=== PATIENT | female | born 1995 | race Caucasian/White ===

== ENCOUNTER 2016-10-08 14:01 | Emergency (ER) | payer MEDICAID, OTHER ==
[~2016-10-08] VITALS: Ht 160 cm; Wt 63.0 kg
[2016-10-08 14:02] VITALS: BP 134/76; PULSE 90; RESP 15; TEMP 92.8; O2SAT 100
[2016-10-08] MEDS ORDERED: prenatal PO (14:23)
--- NOTE | 2016-10-08 14:27 | PD ---
HPI Chief Complaint: Related Problem Time Seen by Provider: 14:22 Travel History International Travel<30 days: No Contact w/Intl Traveler<30days: No Traveled to known affect area: No History of Present Illness HPI Patient's an extra female presenting to the emergency department for evaluation of vaginal bleeding. Patient states that she believes to be 9 weeks . Her last menstrual cycle was on August 06, 2016. Patient states last night she started mild bleeding. Patient has not had any abdominal pain, no cramping , she is not passing any clots. Patient is currently taking vitamins, she has not had any care to this point. Patient has had one live , no history of miscarriages. [facility] Past Medical History Medical History: Denies Significant Hx Diminished Hearing: No ?: LMP: July : 1 Para: 1 Miscarriage: 0 Past Surgical History Tonsillectomy: Yes Social History Alcohol Use: No Tobacco Use: No Substance Use: No Allergies-Medications (Allergen,Severity, Reaction): Coded Allergies: Aspirin (Verified Allergy, Severe, Anaphylaxis, 10/08/16) Benadryl (Verified Allergy, Severe, burning sensation throughout chest, ) Codeine (Verified Allergy, Severe, Anaphylaxis, 10/08/16) Reported Meds & Prescriptions Reported Meds & Active Scripts Active Reported [] 1 Tab PO DAILY Review of Systems Except as stated in HPI: all other systems reviewed are Neg Genitourinary: Positive: Vaginal Bleeding Physical Exam Narrative GENERAL: Well-nourished, well-developed patient. SKIN: Warm and dry. HEAD: Normocephalic. EYES: No scleral icterus. No injection or drainage. NECK: Supple, trachea midline. No JVD or lymphadenopathy. CARDIOVASCULAR: Regular rate and rhythm without murmurs, gallops, or rubs. RESPIRATORY: Breath sounds equal bilaterally. No accessory muscle use. GASTROINTESTINAL: Abdomen soft, non-tender, nondistended. MUSCULOSKELETAL: No cyanosis, or edema. BACK: Nontender without obvious deformity. No CVA tenderness. Data Data Last Documented VS Vital Signs Date Time Temp Pulse Resp B/P Pulse Ox O2 Delivery O2 Flow Rate FiO2 10/08/16 14:02 92.8 90 15 134/76 100 Orders Beta Hcg (Quant/Titer) (10/08/16 14:16) Urinalysis - C+S If Indicated (10/08/16 14:16) Ed Urine Pregnancytest Poc (10/08/16 14:16) Us Pelvis (Ques Pr/Ect)W Trans (10/08/16 ) Labs Laboratory Tests Test 10/08/16 14:25 Urine Color YELLOW Urine Turbidity CLEAR Urine pH 5.5 Urine Specific [place] 1.025 Urine Protein TRACE mg/dL Urine Glucose (UA) NEG mg/dL Urine Ketones NEG mg/dL Urine Occult Blood LARGE Urine Nitrite NEG Urine Bilirubin NEG Urine Urobilinogen LESS THAN 2.0 MG/DL Urine Leukocyte Esterase NEG Urine RBC 40 /hpf Urine WBC 1 /hpf Urine Squamous Epithelial 1 /hpf Cells Urine Mucus FEW /lpf Microscopic Urinalysis Comment CULT NOT INDICATED MDM Medical Decision Making Medical Screen Exam Complete: Yes Emergency Medical Condition: Yes Interpretation(s) Vital Signs Date Time Temp Pulse Resp B/P Pulse Ox O2 Delivery O2 Flow Rate FiO2 10/08/16 14:02 92.8 90 15 134/76 100 Differential Diagnosis Vaginal bleeding versus threatened versus spontaneous miscarriage versus hemorrhage versus anemia versus other Narrative Course Patient is an 19-year-old female presenting to emergency for evaluation of vaginal bleeding that started last night. Patient is approximately 9 weeks . Labs ordered and pending. Ultrasound ordered and pending. Patient resting comfortably, significant other at bedside. Patient's vital signs are stable. Care of patient transferred to Dr. Sun. Gosia Garcia Oct 08, 2016 14:27
[2016-10-08 15:04] LABS: BLOOD, URINE LARGE (NEG); COMMENT (UR) CULT NOT INDICATED; CULTURE IF INDICATED CULT NOT INDICATED; GLUCOSE,URINE NEG (NEG); KETONE, URINE NEG (NEG); MUCUS URINE FEW /lpf (OCC); NITRITE,URINE NEG (NEG); PH, URINE 5.5 (5.0-8.5); SQUAMOUS EPITHELIAL CELL URINE 1 /hpf (0-5); URINE COLOR YELLOW (YELLW/STRAW)
[2016-10-08 15:29] LABS: BETA HCG QUANT 1374 MIU/ML (0-5)
--- NOTE | 2016-10-08 17:20 | PD ---
Data Data Last Documented VS Vital Signs Date Time Temp Pulse Resp B/P Pulse Ox O2 Delivery O2 Flow Rate FiO2 10/08/16 14:02 92.8 90 15 134/76 100 Orders Beta Hcg (Quant/Titer) (10/08/16 14:16) Urinalysis - C+S If Indicated (10/08/16 14:16) Ed Urine Pregnancytest Poc (10/08/16 14:16) Us Pelvis (Ques Pr/Ect)W Trans (10/08/16 ) Labs Laboratory Tests Test 10/08/16 14:25 Urine Color YELLOW Urine Turbidity CLEAR Urine pH 5.5 Urine Specific [place] 1.025 Urine Protein TRACE mg/dL Urine Glucose (UA) NEG mg/dL Urine Ketones NEG mg/dL Urine Occult Blood LARGE Urine Nitrite NEG Urine Bilirubin NEG Urine Urobilinogen LESS THAN 2.0 MG/DL Urine Leukocyte Esterase NEG Urine RBC 40 /hpf Urine WBC 1 /hpf Urine Squamous Epithelial 1 /hpf Cells Urine Mucus FEW /lpf Microscopic Urinalysis Comment CULT NOT INDICATED Human Chorionic Gonadotropin, 1374 MIU/ML Quant MDM Supervised Visit with ROBERTH: Yes Narrative Course I, Dr. Otoole, have reviewed the advance practice practitioner's documentation and am in agreement, met with the patient face to face, made the diagnosis, and the medical decision making was done by me. See her note for further details. The patient was initially evaluated in triage and brought back to a medical bed when it became available. Briefly this is a 20-year-old female, , approximately 9 weeks , LMP August 06, 2016, for evaluation of vaginal bleeding. The patient started noticing some vaginal bleeding that started last night which consist of tiny blood clots. She denies abdominal pain. Beta hCG is 1374. UA is not suggestive of UTI. Chart review shows that the patient's blood type is A positive. Pelvic ultrasound pending. Pelvic ultrasound: CONCLUSION : Fluid-filled sac in the endometrium could be related to early versus blighted ovum. No pole or yolk sac. Ectopic cannot be excluded as this could represent a pseudo-gestational sac as well. Close interval followup and serial beta-hCG is recommended. Patient was made aware of all findings. She is resting comfortably. Her abdominal exam is benign. At this point the plan is to discharge her home and have her return in 48 hours for repeat beta hCG. The patient was informed on when to return to the emergency Department sooner. She verbalizes understanding and agreement with plan. Diagnosis Primary Impression: First trimester bleeding Referrals: [facility]bage Pick Up Man 2 days Additional Instruction: Return to the emergency department in 48 hours or follow up with an FRAME TABLE OPERATOR HELPER doctor in 48 hours for repeat beta hCG. Return to the emergency Department sooner for worsening symptoms or any other concerns as discussed. Disposition: 01 DISCHARGE HOME Condition: Stable Jt Otoole MD Oct 08, 2016 17:20
--- NOTE | 2016-10-08 17:30 | RADRPT ---
EXAM DATE/TIME: 10/08/2016 16:10 [place] COMPARISON: No previous studies available for comparison. INDICATIONS : Ectopic. LAB(S): Beta-hC MEDICAL HISTORY : Vaginal bleeding. SURGICAL HISTORY : Tonsillectomy. Adenoids removed. ENCOUNTER: Initial ACUITY: 1 day PAIN SCORE: 0/10 LOCATION: Bilateral pelvis MEASUREMENTS: UTERUS: 8.7 x 5.7 x 6.0 cm ENDOMETRIAL STRIPE: 18 mm RIGHT OVARY: 2.7 x 2.0 x 2.6 cm LEFT OVARY: 4.2 x 2.4 x 2.1 cm FINDINGS: UTERUS: fluid-filled sac in a thickened endometrium measures 11 x 8 x 12 mm. No pole or yo lk sac. RIGHT OVARY: Ovary contains no mass or significant cystic lesion. LEFT OVARY: Ovary contains no mass or significant cystic lesion. MISCELLANEOUS: No free fluid. CONCLUSION : Fluid-filled sac in the endometrium could be related to early versus blighted ovum. No feta l pole or yolk sac. Ectopic cannot be excluded as this could represent a pseudo-gestational sac as well. Close interval followup and serial beta-hCG is recommended. Carl Espinal MD on October 08, 2016 at 17:27 Board Certified Radiologist. This report was verified electronically.
== END 2016-10-08 18:20 | disposition home or self-care (01) ==
LOC: NEPA 14:01
DX: O20.9 Hemorrhage in early pregnancy, unspecified (principal); Z3A.09 9 weeks gestation of pregnancy
CPT/HCPCS: 76700; 76817; 81001; 84702; 84703

== ENCOUNTER 2016-10-09 11:15 | Emergency (ER) | payer MEDICAID, OTHER ==
[~2016-10-09] VITALS: Ht 160 cm; Wt 63.6 kg
[~2016-10-09 11:15] MED LIST: prenatal PO
[2016-10-09 11:19] VITALS: BP 125/64; PULSE 100; RESP 20; TEMP 97.7; O2SAT 97
[2016-10-09 12:05] LABS: HEMATOCRIT 36.5 % (35.0-46.0); MEAN CELL VOLUME 83.5 FL (80.0-100.0); MEAN CORPUSCULAR HEMOGLOBIN 28.4 PG (27.0-34.0); PLATELET COUNT 223 TH/MM3 (150-450); RED BLOOD COUNT 4.37 MIL/MM3 (4.00-5.30); RED CELL DISTRIBUTION WIDTH 13.8 % (11.6-17.2); REVIEW FLAG FINAL; WHITE BLOOD COUNT 7.9 TH/MM3 (4.0-11.0)
[2016-10-09 12:34] LABS: BETA HCG QUANT 932 MIU/ML (0-5)
--- NOTE | 2016-10-09 12:49 | PD ---
HPI Chief Complaint: Related Problem Time Seen by Provider: 11:38 Travel History International Travel<30 days: No Contact w/Intl Traveler<30days: No Traveled to known affect area: No History of Present Illness HPI This is a 20-year-old female presents to the emergency department in early , having had 2 days of vaginal bleeding. She says today she had 4 episodes of fairly large amount of vaginal bleeding including passing some clots. She says she had to change her pad last at 10 AM 3 hours ago but then hasn't had a change it since. She does feel little bit lightheaded. So was reporting lower abdominal cramping worse on the right side radiating to the back. She was seen in the emergency department yesterday and told she may have an ectopic so she came back in today because her symptoms have worsened. [facility] Past Medical History Diminished Hearing: No ?: LMP: 08/06/16 : 1 Para: 1 Miscarriage: 0 Past Surgical History Tonsillectomy: Yes Social History Alcohol Use: No Tobacco Use: No Substance Use: No Allergies-Medications (Allergen,Severity, Reaction): Coded Allergies: Aspirin (Verified Allergy, Severe, Anaphylaxis, 10/09/16) Benadryl (Verified Allergy, Severe, burning sensation throughout chest, ) Codeine (Verified Allergy, Severe, Anaphylaxis, 10/09/16) Reported Meds & Prescriptions Reported Meds & Active Scripts Active Reported [] 1 Tab PO DAILY Review of Systems Except as stated in HPI: all other systems reviewed are Neg Physical Exam Narrative GENERAL:Well appearing, no acute distress SKIN: Warm and dry. HEAD: Atraumatic. Normocephalic. EYES: Pupils equal and round. No injection or drainage. ENT: Moist mucous membranes NECK: Trachea midline. CARDIOVASCULAR: Regular rate and rhythm. No murmur appreciated. RESPIRATORY: Clear to auscultation. Breath sounds equal bilaterally. GASTROINTESTINAL: Abdomen soft, tender to palpation in the lower abdomen bilaterally with no rebound or guarding. MUSCULOSKELETAL: No obvious deformities. NEUROLOGICAL: Awake and alert. No obvious cranial nerve deficits. Moving all extremities. PSYCHIATRIC: Appropriate mood and affect; insight and judgment normal. Data Data Last Documented VS Vital Signs Date Time Temp Pulse Resp B/P Pulse Ox O2 Delivery O2 Flow Rate FiO2 10/09/16 11:19 97.7 100 20 125/64 97 Room Air Orders Beta Hcg (Quant/Titer) (10/09/16 11:44) Cbc No Diff, Includes Plts (10/09/16 11:44) Labs Laboratory Tests Test 10/09/16 11:52 White Blood Count 7.9 TH/MM3 Red Blood Count 4.37 MIL/MM3 Hemoglobin 12.4 GM/DL Hematocrit 36.5 % Mean Corpuscular Volume 83.5 FL Mean Corpuscular Hemoglobin 28.4 PG Mean Corpuscular Hemoglobin 34.0 % Concent Red Cell Distribution Width 13.8 % Platelet Count 223 TH/MM3 Mean Platelet Volume 8.9 FL Human Chorionic Gonadotropin, 932 MIU/ML Quant MDM Medical Decision Making Medical Screen Exam Complete: Yes Emergency Medical Condition: Yes Interpretation(s) HCG is 900 down from 1300 yesterday Patient is Rh+ Differential Diagnosis Threatened miscarriage, incomplete miscarriage, completed miscarriage, ectopic Narrative Course This is a 20-year-old female who presents to the emergency department with vaginal bleeding in the setting of early . Her hCG is decreased from yesterday indicating a miscarriage or failed . This is not consistent with an ectopic . I think patient is safe for discharge and follow-up with [facility] as an outpatient. Diagnosis Primary Impression: Miscarriage Patient Instructions: General Instructions Additional Instructions: You have been diagnosed with a threatened miscarriage. Many women who have vaginal bleeding in early go on to have normal pregnancies. However some women that have vaginal bleeding will have a miscarriage and it is important to followup with your manager heavy duty. If you develop severe abdominal pain, fever, persistent vomiting or inability to eat, heavy vaginal bleeding using more than one pad an hour, lightheadedness , dizziness, chest pain or shortness of breath return to the emergency department immediately. Followup with your manager heavy duty as soon as possible. Take Tylenol as needed for pain. Med/Other Pt SpecificInfo: No Change to Meds Disposition: DISCHARGE HOME Condition: Stable Angela Badillo MD Oct 09, 2016 12:49
== END 2016-10-09 13:00 | disposition home or self-care (01) ==
LOC: NEPE 11:15
DX: O03.9 Complete or unspecified spontaneous abortion without complication (principal)
CPT/HCPCS: 84702; 85027; 99284

== ENCOUNTER 2016-10-18 11:34 | Emergency (ER) | payer MEDICAID, OTHER ==
[~2016-10-18] VITALS: Ht 160 cm; Wt 63.5 kg
[2016-10-18 11:35] VITALS: BP 133/79; PULSE 77; RESP 16; TEMP 97.8; O2SAT 99
--- NOTE | 2016-10-18 12:27 | PD ---
HPI Chief Complaint: Abdominal Pain Time Seen by Provider: 12:27 Travel History International Travel<30 days: No Contact w/Intl Traveler<30days: No Traveled to known affect area: No History of Present Illness HPI 20-year-old female presents to emergency department for evaluation of lower abdominal pain. Patient was seen and evaluated October 08, 2016 with suspected miscarriage. At that time ultrasound revealed a fluid-filled sac in the endometrium which could represent an early versus a blighted ovum. At that time ectopic cannot be excluded. Patient was advised to return for repeat beta. On October 09 the patient presented and her beta had decreased to 932. She is advised to follow-up outpatient with an ACUTE DIALYSIS REGISTERED NURSE and to return immediately with any abdominal pain, fever, chills. Patient states she bled for 3 days following that visit and that had stopped. She states she was doing well. Patient has been having abdominal pain with associated nausea for the last 3 days. She states that it is severe, cramping, stabbing. It is her left lower and left upper quadrants mostly. Denies any vaginal discharge or bleeding. Has not had intercourse since the suspected miscarriage. She has not been able to follow-up outpatient and she does not have ACUTE DIALYSIS REGISTERED NURSE. She has no other symptoms to report. PFSH Past Medical History Medical History: Denies Significant Hx Diminished Hearing: No ?: Not LMP: 08/06/16, RECENT MISCARRIAGE : 1 Para: 1 Miscarriage: 0 Past Surgical History Tonsillectomy: Yes Social History Alcohol Use: No Tobacco Use: No Substance Use: No Allergies-Medications (Allergen,Severity, Reaction): Coded Allergies: Aspirin (Verified Allergy, Severe, Anaphylaxis, 10/09/16) Benadryl (Verified Allergy, Severe, burning sensation throughout chest, ) Codeine (Verified Allergy, Severe, Anaphylaxis, 10/09/16) Reported Meds & Prescriptions Reported Meds & Active Scripts Active Zofran Odt (Ondansetron Odt) 4 Mg Tab 4 Mg SL Q6HR PRN Ultram (Tramadol HCl) 50 Mg Tab 50 Mg PO Q6H PRN Reported [] 1 Tab PO DAILY Review of Systems Except as stated in HPI: all other systems reviewed are Neg Physical Exam Narrative GENERAL: Well-nourished female patient, in no acute distress SKIN: Warm and dry. HEAD: Atraumatic. Normocephalic. EYES: Pupils equal and round. No scleral icterus. No injection or drainage. ENT: No nasal bleeding or discharge. Mucous membranes pink and moist. NECK: Trachea midline. No JVD. CARDIOVASCULAR: Regular rate and rhythm. No murmur appreciated. RESPIRATORY: No accessory muscle use. Clear to auscultation. Breath sounds equal bilaterally. GASTROINTESTINAL: Abdomen soft, nondistended. Significant left upper and lower quadrant and super pubic tenderness to palpation. Mild guarding. Hepatic and splenic margins not palpable. MUSCULOSKELETAL: No obvious deformities. No clubbing. No cyanosis. No edema. NEUROLOGICAL: Awake and alert. No obvious cranial nerve deficits. Motor grossly within normal limits. Normal speech. PSYCHIATRIC: Appropriate mood and affect; insight and judgment normal. Data Data Last Documented VS Vital Signs Date Time Temp Pulse Resp B/P Pulse Ox O2 Delivery O2 Flow Rate FiO2 10/18/16 18:05 88 18 104/62 99 10/18/16 11:35 97.8 Room Air Orders Beta Hcg (Quant/Titer) (10/18/16 12:26) Complete Blood Count With Diff (10/18/16 12:26) Comprehensive Metabolic Panel (10/18/16 12:26) Lipase (10/18/16 12:26) Prothrombin Time / Inr (Pt) (10/18/16 12:26) Act Partial Throm Time (Ptt) (10/18/16 12:26) Urinalysis - C+S If Indicated (10/18/16 12:26) Type And Screen (10/18/16 12:26) Ed Urine Pregnancytest Poc (10/18/16 12:48) Labs Laboratory Tests Test 10/18/16 12:40 White Blood Count 5.8 TH/MM3 Red Blood Count 4.78 MIL/MM3 Hemoglobin 13.6 GM/DL Hematocrit 40.0 % Mean Corpuscular Volume 83.6 FL Mean Corpuscular Hemoglobin 28.5 PG Mean Corpuscular Hemoglobin 34.1 % Concent Red Cell Distribution Width 13.9 % Platelet Count 253 TH/MM3 Mean Platelet Volume 8.9 FL Neutrophils (%) (Auto) 60.2 % Lymphocytes (%) (Auto) 30.0 % Monocytes (%) (Auto) 7.4 % Eosinophils (%) (Auto) 2.0 % Basophils (%) (Auto) 0.4 % Neutrophils # (Auto) 3.5 TH/MM3 Lymphocytes # (Auto) 1.7 TH/MM3 Monocytes # (Auto) 0.4 TH/MM3 Eosinophils # (Auto) 0.1 TH/MM3 Basophils # (Auto) 0.0 TH/MM3 CBC Comment DIFF FINAL Differential Comment Prothrombin Time 10.5 SEC Prothromb Time International 1.0 RATIO Ratio Activated Partial 29.8 SEC Thromboplast Time Urine Color YELLOW Urine Turbidity HAZY Urine pH 5.0 Urine Specific [place] 1.017 Urine Protein NEG mg/dL Urine Glucose (UA) NEG mg/dL Urine Ketones NEG mg/dL Urine Occult Blood NEG Urine Nitrite NEG Urine Bilirubin NEG Urine Urobilinogen LESS THAN 2.0 MG/DL Urine Leukocyte Esterase MOD Urine RBC 1 /hpf Urine WBC 4 /hpf Urine Squamous Epithelial 5 /hpf Cells Urine Transitional Epithelial <1 /hpf Cells Urine Bacteria RARE /hpf Urine Mucus FEW /lpf Microscopic Urinalysis Comment CULT NOT INDICATED Sodium Level 139 MEQ/L Potassium Level 3.9 MEQ/L Chloride Level 106 MEQ/L Carbon Dioxide Level 24.8 MEQ/L Anion Gap 8 MEQ/L Blood Urea Nitrogen 7 MG/DL Creatinine 0.71 MG/DL Estimat Glomerular Filtration 106 ML/MIN Rate Random Glucose 79 MG/DL Calcium Level 8.8 MG/DL Total Bilirubin 0.2 MG/DL Aspartate Amino Transf 16 U/L (AST/SGOT) Alanine Aminotransferase 30 U/L (ALT/SGPT) Alkaline Phosphatase 101 U/L Total Protein 7.9 GM/DL Albumin 4.1 GM/DL Lipase 180 U/L Human Chorionic Gonadotropin, 7 MIU/ML Quant Blood Type A POSITIVE Antibody Screen NEGATIVE [facility] Medical Decision Making Medical Screen Exam Complete: Yes Emergency Medical Condition: Yes Medical Record Reviewed: Yes Differential Diagnosis Retained product versus UTI versus STD versus colitis versus pancreatitis versus menstrual cycle Narrative Course 20-year-old female presents to emergency department for evaluation. Workup initiated in triage. Once a medical bed becomes available, patient will be transferred and care assumed by that provider. Scripts Ondansetron Odt (Zofran Odt)4 Mg Tab4 Mg SL Q6HR PRN (Nausea/Vomiting) #10 TAB Prov:Elias Sun MD 10/18/16 Tramadol (Ultram)50 Mg Tab50 Mg PO Q6H PRN (PAIN) #20 TAB Prov:Elias Sun MD 10/18/16 Condition: Stable Vannessa Rivas Oct 18, 2016 12:27
[2016-10-18 13:10] LABS: AUTOMATED NEUTROPHIL # 3.5 TH/MM3 (1.8-7.7); BASOPHIL % 0.4 % (0.0-2.0); EOSINOPHIL # 0.1 TH/MM3 (0-0.4); HEMO FLAGS DIFF FINAL; LYMPHOCYTE # 1.7 TH/MM3 (1.0-4.8); MEAN CELL VOLUME 83.6 FL (80.0-100.0); MEAN CORPUSCULAR HEMOGLOBIN 28.5 PG (27.0-34.0); MEAN CORPUSCULAR HGB CONC 34.1 % (32.0-36.0); MONO % 7.4 % (0.0-8.0); NEUT % 60.2 % (16.0-70.0); PLATELET COUNT 253 TH/MM3 (150-450); RED BLOOD COUNT 4.78 MIL/MM3 (4.00-5.30); RED CELL DISTRIBUTION WIDTH 13.9 % (11.6-17.2); WHITE BLOOD COUNT 5.8 TH/MM3 (4.0-11.0)
[2016-10-18 13:16] LABS: BACTERIA, URINE RARE /hpf; BLOOD, URINE NEG (NEG); GLUCOSE,URINE NEG (NEG); KETONE, URINE NEG (NEG); MUCUS URINE FEW /lpf (OCC); NITRITE,URINE NEG (NEG); SQUAMOUS EPITHELIAL CELL URINE 5 /hpf (0-5); TRANSITIONAL EPI CELLS, URINE <1 /hpf; URINE COLOR YELLOW (YELLW/STRAW)
[2016-10-18 13:17] LABS: COMMENT (UR) CULT NOT INDICATED; CULTURE IF INDICATED CULT NOT INDICATED
[2016-10-18 13:23] LABS: APTT (PATIENT) 29.8 SEC (24.3-30.1); PROTHROMBIN TIME - PATIENT 10.5 SEC (9.8-11.6)
[2016-10-18 13:32] LABS: ANION GAP 8 MEQ/L (5-15); AST (GOT) 16 U/L (16-38); BICARBONATE 24.8 MEQ/L (21.0-32.0); BLOOD UREA NITROGEN 7 MG/DL (7-18); CHLORIDE 106 MEQ/L (98-107); GLOMERULAR FILTRATION RATE 106 ML/MIN (>89); POTASSIUM 3.9 MEQ/L (3.5-5.1); SODIUM (NA) 139 MEQ/L (136-145)
[2016-10-18 13:37] LABS: ALKALINE PHOSPHATASE 101 U/L (45-117); ALT (GPT) 30 U/L (9-42); BETA HCG QUANT 7 MIU/ML (0-5); TOTAL BILIRUBIN ADULT 0.2 MG/DL (0.2-1.0)
[2016-10-18] MEDS ORDERED: ZOFR4TAB3 SL (17:19)
[2016-10-18] MEDS ORDERED: ULTR50TA5 PO (17:19)
--- NOTE | 2016-10-18 17:19 | PD ---
Physical Exam Narrative Patient was seen and examined with my legal administrative assistant. Pelvic exam: No blood in the vaginal vault. No cervical motion tenderness. Uterus is nonenlarged with moderate tenderness on palpation. No adnexal mass or tenderness. Data Data Last Documented VS Vital Signs Date Time Temp Pulse Resp B/P Pulse Ox O2 Delivery O2 Flow Rate FiO2 10/18/16 11:35 97.8 77 16 133/79 99 Room Air Orders Beta Hcg (Quant/Titer) (10/18/16 12:26) Complete Blood Count With Diff (10/18/16 12:26) Comprehensive Metabolic Panel (10/18/16 12:26) Lipase (10/18/16 12:26) Prothrombin Time / Inr (Pt) (10/18/16 12:26) Act Partial Throm Time (Ptt) (10/18/16 12:26) Urinalysis - C+S If Indicated (10/18/16 12:26) Type And Screen (10/18/16 12:26) Ed Urine Pregnancytest Poc (10/18/16 12:48) Labs Laboratory Tests Test 10/18/16 12:40 White Blood Count 5.8 TH/MM3 Red Blood Count 4.78 MIL/MM3 Hemoglobin 13.6 GM/DL Hematocrit 40.0 % Mean Corpuscular Volume 83.6 FL Mean Corpuscular Hemoglobin 28.5 PG Mean Corpuscular Hemoglobin 34.1 % Concent Red Cell Distribution Width 13.9 % Platelet Count 253 TH/MM3 Mean Platelet Volume 8.9 FL Neutrophils (%) (Auto) 60.2 % Lymphocytes (%) (Auto) 30.0 % Monocytes (%) (Auto) 7.4 % Eosinophils (%) (Auto) 2.0 % Basophils (%) (Auto) 0.4 % Neutrophils # (Auto) 3.5 TH/MM3 Lymphocytes # (Auto) 1.7 TH/MM3 Monocytes # (Auto) 0.4 TH/MM3 Eosinophils # (Auto) 0.1 TH/MM3 Basophils # (Auto) 0.0 TH/MM3 CBC Comment DIFF FINAL Differential Comment Prothrombin Time 10.5 SEC Prothromb Time International 1.0 RATIO Ratio Activated Partial 29.8 SEC Thromboplast Time Urine Color YELLOW Urine Turbidity HAZY Urine pH 5.0 Urine Specific [place] 1.017 Urine Protein NEG mg/dL Urine Glucose (UA) NEG mg/dL Urine Ketones NEG mg/dL Urine Occult Blood NEG Urine Nitrite NEG Urine Bilirubin NEG Urine Urobilinogen LESS THAN 2.0 MG/DL Urine Leukocyte Esterase MOD Urine RBC 1 /hpf Urine WBC 4 /hpf Urine Squamous Epithelial 5 /hpf Cells Urine Transitional Epithelial <1 /hpf Cells Urine Bacteria RARE /hpf Urine Mucus FEW /lpf Microscopic Urinalysis Comment CULT NOT INDICATED Sodium Level 139 MEQ/L Potassium Level 3.9 MEQ/L Chloride Level 106 MEQ/L Carbon Dioxide Level 24.8 MEQ/L Anion Gap 8 MEQ/L Blood Urea Nitrogen 7 MG/DL Creatinine 0.71 MG/DL Estimat Glomerular Filtration 106 ML/MIN Rate Random Glucose 79 MG/DL Calcium Level 8.8 MG/DL Total Bilirubin 0.2 MG/DL Aspartate Amino Transf 16 U/L (AST/SGOT) Alanine Aminotransferase 30 U/L (ALT/SGPT) Alkaline Phosphatase 101 U/L Total Protein 7.9 GM/DL Albumin 4.1 GM/DL Lipase 180 U/L Human Chorionic Gonadotropin, 7 MIU/ML Quant Blood Type A POSITIVE Antibody Screen NEGATIVE MDM Supervised Visit with ROBERTH: Yes Interpretation(s) 1715 p.m. CBC within normal limit. CMP within normal limit. Beta hCG 7. UA is negative. Narrative Course 20-year-old female with intermittent low abdominal pain. History of threatened AB. Beta hCG decreased from 1374 to 932 to 7 today. Diagnosis Primary Impression: Complete Patient Instructions: General Instructions Med/Other Pt SpecificInfo: Prescription(s) given Scripts Ondansetron Odt (Zofran Odt)4 Mg Tab4 Mg SL Q6HR PRN (Nausea/Vomiting) #10 TAB Prov:Elias Sun MD 10/18/16 Tramadol (Ultram)50 Mg Tab50 Mg PO Q6H PRN (PAIN) #20 TAB Prov:Elias Sun MD 10/18/16 Disposition: 01 DISCHARGE HOME Condition: Stable Elias Sun MD Oct 18, 2016 17:19
[2016-10-18 18:05] VITALS: BP 104/62
== END 2016-10-18 18:05 | disposition home or self-care (01) ==
LOC: NEPA 11:34
DX: O03.9 Complete or unspecified spontaneous abortion without complication (principal)
CPT/HCPCS: 80053; 81001; 83690; 84702; 84703; 85025; 85610; 85730; 86850; 86900; 86901; 99284

== ENCOUNTER 2017-01-28 18:34 | Emergency (ER) | payer MEDICAID ==
[~2017-01-28] VITALS: Ht 160 cm; Wt 65.0 kg
[~2017-01-28 18:34] MED LIST changes: +ULTR50TA5 PO; +ZOFR4TAB3 SL
[2017-01-28 18:35] VITALS: BP 133/84; PULSE 98; RESP 15; TEMP 98.6; O2SAT 100
--- NOTE | 2017-01-28 19:08 | PD ---
HPI Chief Complaint: Pain: Acute or Chronic Time Seen by Provider: 19:04 Travel History International Travel<30 days: No Contact w/Intl Traveler<30days: No Traveled to known affect area: No History of Present Illness HPI Patient is a 21-year-old female presenting to the emergency department for evaluation of right knee pain. Patient states 2 weeks ago she jumped over fence , landing hard on her right knee. She was unable to bear weight initially however after regaining her composure she was able to walk but since that time if she bears any weight on her knee causes increased pain. Patient reports the pain is stabbing in nature and radiates up her leg. She reports swelling. She has been taking ibuprofen and acetaminophen with no significant relief of symptoms. She has been alternating heat and ice as well. She reports a history of knee pain as a freshman in high school. She has not had any surgeries. She denies any significant past medical history. She currently reports her pain is a 7 out of 10. PFS Past Medical History Medical History: Denies Significant Hx Diminished Hearing: No Immunizations Current: No Tetanus Vaccination: < 5 Years Influenza Vaccination: Yes ?: Not LMP: 01/28/2017 : 2 Para: 1 Miscarriage: 1 Past Surgical History Tonsillectomy: Yes Social History Alcohol Use: No Tobacco Use: No Substance Use: No Allergies-Medications (Allergen,Severity, Reaction): Coded Allergies: Aspirin (Verified Allergy, Severe, Anaphylaxis, 10/09/16) Benadryl (Verified Allergy, Severe, burning sensation throughout chest, ) Codeine (Verified Allergy, Severe, Anaphylaxis, 10/09/16) Reported Meds & Prescriptions Reported Meds & Active Scripts Active No Active Prescriptions or Reported Medications Review of Systems Except as stated in HPI: all other systems reviewed are Neg Musculoskeletal: Positive: Myalgias, Arthralgias, Limited ROM, Edema, Pain Physical Exam Narrative GENERAL: Well-nourished, well-developed patient. SKIN: Focused skin assessment warm/dry. HEAD: Normocephalic. EYES: No scleral icterus. No injection or drainage. NECK: Supple, trachea midline. No JVD or lymphadenopathy. CARDIOVASCULAR: Regular rate and rhythm without murmurs, gallops, or rubs. RESPIRATORY: Breath sounds equal bilaterally. No accessory muscle use. GASTROINTESTINAL: Abdomen soft, non-tender, nondistended. MUSCULOSKELETAL: No cyanosis, edema noted to the anterior right knee. Significantly tender to palpation, decreased range of motion with flexion and extension. No edema noted in the calf, negative Homans sign. Patient is neurovascularly intact. BACK: Nontender without obvious deformity. No CVA tenderness. Data Data Last Documented VS Vital Signs Date Time Temp Pulse Resp B/P Pulse Ox O2 Delivery O2 Flow Rate FiO2 01/28/17 18:35 98.6 98 15 133/84 100 Orders Knee, Complete (4vws) (01/28/17 ) Crutches (01/28/17 19:57) ^ Niko Bandage (01/28/17 19:57) MDM Medical Decision Making Medical Screen Exam Complete: Yes Emergency Medical Condition: Yes Interpretation(s) Vital Signs Date Time Temp Pulse Resp B/P Pulse Ox O2 Delivery O2 Flow Rate FiO2 01/28/17 18:35 98.6 98 15 133/84 100 Differential Diagnosis Fracture versus sprain versus strain versus tear versus effusion versus other Narrative Course Patient is a 21-year-old female presenting with 2 weeks of right knee pain after jumping over a fence landing hard on her right knee. She has been trialing conservative management since that time with no relief of symptoms. Imaging ordered and pending, vital signs are stable. Friend at bedside. Imaging of the right knee shows no acute abnormality. Patient will be placed in an Niko wrap for support and given crutches. She will be referred to orthopedics for further evaluation and management. She is encouraged to continue range of motion exercises, alternating heat and ice to the affected area, avoid exacerbating activities, rest, elevation. She is advised to return to emergency department for any new or worsening symptoms. She verbalizes understanding of these instructions. Patient is stable for discharge. Diagnosis Primary Impression: Knee pain Qualified Code: M25.561 - Acute pain of right knee Referrals: Orthopaedic Surgeon Patient Instructions: General Instructions, Knee Exercises (GEN), Knee Pain (ED ) Additional Instructions: Follow-up with orthopedics for further evaluation and management Continue range of motion exercises, alternate heat and ice the affected area, avoid exacerbating activities Take medications as needed and as directed Return to emergency department for any new or worsening symptoms Med/Other Pt SpecificInfo: Prescription(s) given Scripts Ibuprofen 800 Mg Qdv508 Mg PO Q6HR PRN (PAIN) #40 TAB Ref 0 Prov:Gosia Garcia 01/28/17 Cyclobenzaprine (Flexeril)10 Mg Tab10 Mg PO TID PRN (MUSCLE SPASM) 7 Days Ref 0 Prov:Gosia Garcia 01/28/17 Disposition: 01 DISCHARGE HOME Condition: Stable Gosia Garcia Jan 28, 2017 19:08
--- NOTE | 2017-01-28 19:49 | RADRPT ---
EXAM DATE/TIME: 01/28/2017 19:25 [facility] COMPARISON: No previous studies available for comparison. INDICATIONS : Pain in knee from jumping fence and landing awkwardly on right knee. MEDICAL HISTORY : None. SURGICAL HISTORY : None. ENCOUNTER: Initial ACUITY: 1 day PAIN SCORE: 10/10 LOCATION: Left knee FINDINGS: Four view examination of the right knee demonstrates no evidence of fracture or dislocation. Bony mi neralization is normal. The articular surfaces are intact. The suprapatellar soft tissues have a no rmal configuration. CONCLUSION: Normal right knee x-rays. Flavio Cunningham MD on January 28, 2017 at 19:46 Board Certified Radiologist. This report was verified electronically.
[2017-01-28] MEDS ORDERED: CYCL1TAB29 PO (20:00)
[2017-01-28] MEDS ORDERED: IBUP800T23 PO (20:00)
== END 2017-01-28 20:29 | disposition home or self-care (01) ==
LOC: NEPK 18:34
DX: M25.561 Pain in right knee (principal)
CPT/HCPCS: 73564; 99283; E0113

== ENCOUNTER 2017-03-04 15:33 | Emergency (ER) | payer MEDICAID ==
[~2017-03-04] VITALS: Ht 162.6 cm; Wt 65.0 kg
[~2017-03-04 15:33] MED LIST changes: +CYCL1TAB29 PO; +IBUP800T23 PO; -ULTR50TA5 PO; -ZOFR4TAB3 SL; -prenatal PO
[2017-03-04 15:34] VITALS: BP 124/76; PULSE 104; RESP 16; TEMP 98.2; O2SAT 100
--- NOTE | 2017-03-04 17:39 | PD ---
HPI Chief Complaint: Pain: Acute or Chronic Time Seen by Provider: 17:39 Travel History International Travel<30 days: No Contact w/Intl Traveler<30days: No Traveled to known affect area: No History of Present Illness HPI 21 year-old female presents to the emergency department for evaluation left breast pain worsening over the last 2-3 days with associated orange nipple discharge. Patient recalls no injury. She is not currently . She has not been recently . Patient is concerned because she is a 20-year-old relative who has breast cancer. Denies any recent illnesses, fever, or chills. She has no other symptoms to report. [facility] Past Medical History Medical History: Denies Significant Hx Diabetes: No Diminished Hearing: No Immunizations Current: No Tetanus Vaccination: < 5 Years Influenza Vaccination: No ?: Not LMP: 02/28/17 : 2 Para: 1 Miscarriage: 1 Past Surgical History Tonsillectomy: Yes Social History Alcohol Use: No Tobacco Use: No Substance Use: No Allergies-Medications (Allergen,Severity, Reaction): Coded Allergies: Aspirin (Verified Allergy, Severe, Anaphylaxis, 03/04/17) Benadryl (Verified Allergy, Severe, burning sensation throughout chest, ) Codeine (Verified Allergy, Severe, Anaphylaxis, 03/04/17) Reported Meds & Prescriptions Reported Meds & Active Scripts Active No Active Prescriptions or Reported Medications Review of Systems Except as stated in HPI: all other systems reviewed are Neg Physical Exam Narrative GENERAL: Well-nourished, well-developed male patient in no acute distress SKIN: Focused skin assessment warm/dry. Bilateral breasts are symmetrical. There is tenderness elicited palpation on the left lateral breast more so at 11: 00 and into the left axilla. I am unable to palpate any lymphadenopathy. Her is no fluctuance. No discharge. No Skin discoloration HEAD: Normocephalic. EYES: No scleral icterus. No injection or drainage. NECK: Supple, trachea midline. No JVD or lymphadenopathy. CARDIOVASCULAR: Tachycardic rate and rhythm without murmurs, gallops, or rubs. RESPIRATORY: Breath sounds equal bilaterally. No accessory muscle use. GASTROINTESTINAL: Abdomen soft, non-tender, nondistended. MUSCULOSKELETAL: No cyanosis, or edema. BACK: Nontender without obvious deformity. No CVA tenderness. Data Data Last Documented VS Vital Signs Date Time Temp Pulse Resp B/P Pulse Ox O2 Delivery O2 Flow Rate FiO2 03/04/17 18:53 92 20 118/73 99 Room Air 03/04/17 15:34 98.2 Orders Iv Access Insert/Monitor (03/04/17 17:50) Ct Thorax/ Chest W Iv Contrast (03/04/17 ) Ketorolac Inj (Toradol Inj) (03/04/17 18:15) Iohexol 350 Inj (Omnipaque 350 Inj) (03/04/17 19:25) MDM Medical Decision Making Medical Screen Exam Complete: Yes Emergency Medical Condition: Yes Medical Record Reviewed: Yes Differential Diagnosis Cystic breast versus neurogenic pain versus malignancy versus cyst Narrative Course 21 year-old female presents to the emergency department for evaluation left breast pain. Patient is significantly tender on the left lateral breast into the left axilla. No palpable mass. I'm unable to do a diagnostic ultrasound at this time due to no identified area for further evaluation. Discussed the patient with my attending to also assess the patient. CT imaging of soft tissue will be complete for possible mass versus abscess. This is complete with no acute abnormality identified. Last Impressions Chest CT 03/04/17 0000 Signed Impressions: Service Date/Time: Saturday, March 04, 2017 19:16 - CONCLUSION: Normal examination. If there is concern for a left breast mass and nipple discharge consider dedicated breast imaging workup with ultrasound and mammogram if indicated. Michael Cordon MD Patient has been given outpatient diagnostic mammogram/ultrasound form. She is encouraged to follow-up with a primary care provider. She agrees to return immediately with any acute worsening symptoms. 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
[2017-03-04] MEDS ORDERED: KETOROLAC TROMETHAMINE 30 MG/ML (IVP) VIAL IV PUSH ONE (18:15)
[2017-03-04 18:53] VITALS: BP 118/73; PULSE 92; RESP 20; O2SAT 99
[2017-03-04] MEDS ORDERED: IOHEXOL 350 MG/ML 10 ML VIAL (for RAD DIAG) IV ONE (19:25)
--- NOTE | 2017-03-04 19:30 | RADRPT ---
EXAM DATE/TIME: 03/04/2017 19:16 [facility] COMPARISON: No previous studies available for comparison. INDICATIONS : Patient has left breast pain with discolored discharge. Evaluate for mass. IV CONTRAST: 60 cc Omnipaque 350 (iohexol) IV RADIATION DOSE: 3.37 CTDIvol (mGy) MEDICAL HISTORY : None SURGICAL HISTORY : Tonsillectomy. ENCOUNTER: Initial ACUITY: 4 - 6 days PAIN SCALE: 9/10 LOCATION: Left chest TECHNIQUE: Volumetric scanning of the chest was performed. Using automated exposure control and adjustment of t he mA and/or kV according to patient size, radiation dose was kept as low as reasonably achievable to obtain optimal diagnostic quality images. DICOM format image data is available electronically for review and comparison. Follow-up recommendations for incidentally detected pulmonary nodules are based at a minimum on nodul e size and patient risk factors according to Fleischner Society Guidelines. FINDINGS: LUNGS: There is no consolidation or pneumothorax. No concerning pulmonary nodule is visualized. PLEURA: There is no pleural thickening or pleural effusion. MEDIASTINUM: The heart and great vessels demonstrate no acute abnormality. There is no mediastinal or hilar lymph adenopathy. AXILLAE: Within normal limits. No lymphadenopathy. SKELETAL: Within normal limits for patient age. MISCELLANEOUS: The visualized upper abdominal organs demonstrate no acute abnormality. CONCLUSION: Normal examination. If there is concern for a left breast mass and nipple discharge consider dedicat ed breast imaging workup with ultrasound and mammogram if indicated. Michael Cordon MD on March 04, 2017 at 19:27 Board Certified Radiologist. This report was verified electronically.
[2017-03-09] MEDS ORDERED: CEPH-460 PO (03:46)
[2017-03-09] MEDS ORDERED: MEDR4PAK PO (03:50)
== END 2017-03-04 20:16 | disposition home or self-care (01) ==
LOC: NEPD 15:33
DX: N64.4 Mastodynia (principal); N63 Unspecified lump in breast; R00.0 Tachycardia, unspecified
CPT/HCPCS: 71260; 96374; 99285; J1885; Q9967

== ENCOUNTER 2017-12-13 23:49 | Emergency (ER) | payer SELFPAY ==
[~2017-12-13 23:49] MED LIST changes: +CEPH-460 PO; -CYCL1TAB29 PO; -IBUP800T23 PO; +MEDR4PAK PO
[2017-12-14 00:07] VITALS: BP 129/75; PULSE 82; RESP 18; TEMP 98.4; O2SAT 99
--- NOTE | 2017-12-14 01:36 | PD ---
HPI Chief Complaint: Related Problem Time Seen by Provider: 01:23 Travel History International Travel<30 days: No Contact w/Intl Traveler<30days: No Traveled to known affect area: No History of Present Illness HPI Patient is a , currently , who comes in complaining of right adnexal area pain. Denies any vaginal bleeding. Was seen at [facility] medically clear except for ultrasound which is pending to rule out ectopic. Patient sent to [facility] for ultrasound. Currently the patient has no abdominal pain. Denies any vaginal bleeding, denies any vaginal discharge, nausea vomiting or diarrhea. The patient gave history of having one normal , one ectopic and her current now. [facility] Past Medical History Medical History: Denies Significant Hx Diabetes: No Diminished Hearing: No Immunizations Current: No ?: LMP: 10/06/17 : 3 Para: 1 Miscarriage: 1 Past Surgical History Tonsillectomy: Yes Social History Alcohol Use: No Tobacco Use: No Substance Use: No Allergies-Medications (Allergen,Severity, Reaction): Coded Allergies: aspirin (Unverified Allergy, Severe, Anaphylaxis, 12/14/17) codeine (Unverified Allergy, Severe, Anaphylaxis, 12/14/17) diphenhydramine (Unverified Allergy, Severe, Anaphylaxis, 12/14/17) Reported Meds & Prescriptions Reported Meds & Active Scripts Active No Active Prescriptions or Reported Medications Review of Systems General / Constitutional: No: Fever Eyes: No: Visual changes HENT: No: Headaches Cardiovascular: No: Chest Pain or Discomfort Respiratory: No: Shortness of Breath Gastrointestinal: Positive: Abdominal Pain Genitourinary: No: Dysuria Musculoskeletal: No: Pain Skin: No Rash Neurologic: No: Weakness Psychiatric: No: Depression Endocrine: No: Polydipsia Hematologic/Lymphatic: No: Easy Bruising Physical Exam Narrative GENERAL: SKIN: Warm and dry. HEAD: Atraumatic. Normocephalic. EYES: Pupils equal and round. No scleral icterus. No injection or drainage. ENT: No nasal bleeding or discharge. Mucous membranes pink and moist. NECK: Trachea midline. No JVD. CARDIOVASCULAR: Regular rate and rhythm. RESPIRATORY: No accessory muscle use. Clear to auscultation. Breath sounds equal bilaterally. GASTROINTESTINAL: Abdomen soft, non-tender, nondistended. MUSCULOSKELETAL: Extremities without clubbing, cyanosis, or edema. No obvious deformities. NEUROLOGICAL: Awake and alert. No obvious cranial nerve deficits. Motor grossly within normal limits. Five out of 5 muscle strength in the arms and legs. Normal speech. PSYCHIATRIC: Appropriate mood and affect; insight and judgment normal. Data Data Last Documented VS Vital Signs Date Time Temp Pulse Resp B/P (MAP) Pulse Ox O2 Delivery O2 Flow Rate FiO2 12/14/17 00:07 98.4 82 18 129/75 (93) 99 Orders Orders Us Pelvis (Ques Preg/Ectopic) (12/14/17 02:12) MDM Medical Decision Making Medical Screen Exam Complete: Yes Emergency Medical Condition: Yes Medical Record Reviewed: Yes Differential Diagnosis UTI versus ectopic Narrative Course CBC shows no left shift, no anemia, normal platelet count. Coagulation profile within normal limits UA does not show any evidence of UTI however there is some sterile bacteriuria Electrolytes are all within normal limits, normal kidney liver and pancreatic functions. HCG quantitative is 20,025. Ultrasound shows evidence of an IUP at approximately 5-6 weeks, heart tones present at 144 Patient is stable Diagnosis Primary Impression: IUP Patient Instructions: First Trimester (ED), General Instructions Scripts No Active Prescriptions or Reported Meds Disposition: DISCHARGE HOME Condition: Stable Praveen Pretty MD Dec 14, 2017 01:36
--- NOTE | 2017-12-14 02:54 | RADRPT ---
EXAM DATE/TIME: 12/14/2017 02:08 [facility] COMPARISON: No previous studies available for comparison. INDICATIONS : Pelvic cramping. LAB(S): Beta-hC MEDICAL HISTORY : Ectopic . SURGICAL HISTORY : None. ENCOUNTER: Initial ACUITY: 1 day PAIN SCORE: 3/10 LOCATION: Bilateral pelvis MEASUREMENTS: UTERUS: 10.1 x 5.4 x 5.8 cm ENDOMETRIAL STRIPE: 16 mm RIGHT OVARY: 3.0 x 2.0 x 1.7 cm LEFT OVARY: 3.4 x 2.0 x 2.2 cm FREE FLUID: No CROWN RUMP LENGTH: 0.45 = 6 WKS 1 DAYS FHR: 142 BPM FINDINGS: Real-time ultrasound examination demonstrates a gestational sac measuring 1.3 cm, characteristic of 5 weeks 4 days size is top a yolk sac and pole is identified with crown-rump length of 5 mm, ivonne racteristic of 6 week 1 day size. Under Doppler, heart rate of 144 beats per minute is documen heidy. Small follicular cysts are present in both ovaries. No evidence of free fluid. CONCLUSION: Viable intrauterine between 5 and 6 weeks. Julio César Major MD on December 14, 2017 at 2:50 Board Certified Radiologist. This report was verified electronically.
[2017-12-14] MEDS ORDERED: MACR100C2 PO (03:10)
== END 2017-12-14 03:36 | disposition home or self-care (01) ==
LOC: NEPC 23:49
DX: O26.891 Other specified pregnancy related conditions, first trimester (principal); Z3A.01 Less than 8 weeks gestation of pregnancy; Z88.5 Allergy status to narcotic agent
CPT/HCPCS: 76700; 76801; 76817; 80053; 81001; 83605; 83690; 84702; 85025; 99283

== ENCOUNTER 2017-12-22 15:20 | Emergency (ER) | payer SELFPAY ==
[~2017-12-22] VITALS: Ht 160 cm; Wt 68.0 kg
[~2017-12-22 15:20] MED LIST changes: -CEPH-460 PO; +MACR100C2 PO; -MEDR4PAK PO
[2017-12-22 15:52] VITALS: BP 130/71; PULSE 102; RESP 18; TEMP 98.2; O2SAT 99
[2017-12-22] MEDS ORDERED: SODIUM CHLOR 0.9% 1000 ML INJ 1,000 ML IV SCH (16:51)
[2017-12-22] MEDS ORDERED: SODIUM CHLORIDE 0.9% FLUSH 10 ML FLUSH IV FLUSH PRN (17:00)
[2017-12-22] MEDS ORDERED: ONDANSETRON HCL 4 MG/2 ML VIAL IVP ONE (17:00)
[2017-12-22 17:22] LABS: AUTOMATED NEUTROPHIL # 7.2 TH/MM3 (1.8-7.7); BASOPHIL % 0.2 % (0.0-2.0); EOSINOPHIL # 0.1 TH/MM3 (0-0.4); EOSINOPHIL % 0.6 % (0.0-4.0); HEMOGLOBIN 12.8 GM/DL (11.6-15.3); LYMPH % 19.3 % (9.0-44.0); LYMPHOCYTE # 1.9 TH/MM3 (1.0-4.8); MEAN CORPUSCULAR HEMOGLOBIN 28.4 PG (27.0-34.0); MEAN CORPUSCULAR HGB CONC 33.8 % (32.0-36.0); MEAN PLATELET VOLUME 8.6 FL (7.0-11.0); MONO % 5.8 % (0.0-8.0); MONOCYTE # 0.6 TH/MM3 (0-0.9); NEUT % 74.1 % (16.0-70.0); PLATELET COUNT 233 TH/MM3 (150-450); RED BLOOD COUNT 4.52 MIL/MM3 (4.00-5.30); RED CELL DISTRIBUTION WIDTH 13.8 % (11.6-17.2); WHITE BLOOD COUNT 9.8 TH/MM3 (4.0-11.0)
[2017-12-22 17:24] LABS: MUCUS URINE FEW /lpf (OCC); SQUAMOUS EPITHELIAL CELL URINE 2 /hpf (0-5)
[2017-12-22 17:27] LABS: BILIRUBIN, URINE NEG (NEG); BLOOD, URINE NEG (NEG); GLUCOSE,URINE NEG (NEG); KETONE, URINE 10 mg/dL (NEG); NITRITE,URINE NEG (NEG); PH, URINE 6.5 (5.0-8.5); URINE COLOR YELLOW (YELLW/STRAW); URINE LEUKOCYTE ESTERASE NEG (NEG)
[2017-12-22 17:34] LABS: ALBUMIN 4.1 GM/DL (3.4-5.0); AST (GOT) 16 U/L (15-37); BICARBONATE 23.2 MEQ/L (21.0-32.0); BLOOD UREA NITROGEN 4 MG/DL (7-18); CALCIUM 9.1 MG/DL (8.5-10.1); CHLORIDE 105 MEQ/L (98-107); CREATININE 0.56 MG/DL (0.50-1.00); GLOMERULAR FILTRATION RATE 137 ML/MIN (>89); GLUCOSE,RANDOM 79 MG/DL (74-106); SODIUM (NA) 138 MEQ/L (136-145)
[2017-12-22 17:35] LABS: ALT (GPT) 21 U/L (10-53)
[2017-12-22 17:51] LABS: ALKALINE PHOSPHATASE 86 U/L (45-117); TOTAL BILIRUBIN ADULT 0.3 MG/DL (0.2-1.0); TOTAL PROTEIN 7.7 GM/DL (6.4-8.2)
[2017-12-22] MEDS ORDERED: ACETAMINOPHEN 325 MG TAB PO ONE ×2 (18:15→23:00)
--- NOTE | 2017-12-22 18:19 | PD ---
HPI Chief Complaint: GI Complaint Time Seen by Provider: 16:49 Travel History International Travel<30 days: No Contact w/Intl Traveler<30days: No Traveled to known affect area: No History of Present Illness HPI 22-year-old female, approximately 7 weeks , presents to the emergency department with complaint of vomiting blood that started today. Says she has vomited blood about 4 5 times. Last vomited while waiting in the ER waiting room. Denies upper abdominal pain. Says she has had continued right lower quadrant abdominal pain that now radiates to her back since she was evaluated here last time for her . Was told she had a urinary tract infection and was told to try taking cranberry juice and if that did not work to start taking Macrobid, which she filled and took her first dose last night and her second dose this morning. Denies significant vomiting throughout the . Denies abnormal vaginal bleeding, discharge, leaking. Denies dysuria, hematuria. Reports normal stool. Says the pain is constant. Rates pain 8/10. Denies history of abdominal surgeries. No known aggravating or relieving factors. Has not taken any medication, other than the Macrobid, or tried any other treatments to alleviate her symptoms. No primary care provider. No FOOD PREPARER. Allergies to aspirin, codeine, diphenhydramine. Denies significant past medical history. Has no other medical complaints. No other modifying factors or associated signs and symptoms. PFSH Past Medical History Medical History: Denies Significant Hx Diabetes: No Diminished Hearing: No Immunizations Current: No ?: LMP: 09/2017 : 3 Para: 1 Miscarriage: 1 Past Surgical History Tonsillectomy: Yes Social History Alcohol Use: No Tobacco Use: No Substance Use: No Allergies-Medications (Allergen,Severity, Reaction): Coded Allergies: aspirin (Unverified Allergy, Severe, Anaphylaxis, 12/22/17) codeine (Unverified Allergy, Severe, Anaphylaxis, 12/22/17) diphenhydramine (Unverified Allergy, Severe, Anaphylaxis, 12/22/17) Reported Meds & Prescriptions Reported Meds & Active Scripts Active Reglan (Metoclopramide HCl) 10 Mg Tab 10 Mg PO TID PRN Tylenol (Acetaminophen) 325 Mg Tab 650 Mg PO Q6H PRN Macrobid (Nitrofurantoin Monohydrate Macrocrystals) 100 Mg Capsule 100 Mg PO BID 7 Days Review of Systems Except as stated in HPI: all other systems reviewed are Neg Physical Exam Narrative GENERAL: Well-nourished, well-developed patient, in no acute distress ; afebrile SKIN: Warm and dry. HEAD: Atraumatic. Normocephalic. EYES: Pupils equal and round. No scleral icterus. No injection or drainage. ENT: Mucosa pink and moist. Airway patent. NECK: Trachea midline. CARDIOVASCULAR: Regular rate and rhythm. No murmur appreciated. RESPIRATORY: No accessory muscle use. Clear to auscultation. Breath sounds equal bilaterally. GASTROINTESTINAL: Abdomen soft, tenderness on palpation to right lower quadrant , nondistended. Hepatic and splenic margins not palpable. Bowel sounds are active 4 quadrants. Nonrigid. No rebound tenderness. No guarding. BACK: No CVA tenderness. MUSCULOSKELETAL: No obvious deformities. No clubbing. No cyanosis. No edema. NEUROLOGICAL: Awake and alert. Oriented 3. No obvious cranial nerve deficits. Motor grossly within normal limits. Normal speech. PSYCHIATRIC: Appropriate mood and affect; insight and judgment normal. Data Data Last Documented VS Vital Signs Date Time Temp Pulse Resp B/P (MAP) Pulse Ox O2 Delivery O2 Flow Rate FiO2 12/22/17 19:51 20 12/22/17 15:52 98.2 102 130/71 (90) 99 Orders Orders Complete Blood Count With Diff (12/22/17 16:51) Comprehensive Metabolic Panel (12/22/17 16:51) Lipase (12/22/17 16:51) Urinalysis - C+S If Indicated (12/22/17 16:51) Iv Access Insert/Monitor (12/22/17 16:51) Ondansetron Inj (Zofran Inj) (12/22/17 17:00) Sodium Chlor 0.9% 1000 Ml Inj (Ns 1000 M (12/22/17 16:51) Sodium Chloride 0.9% Flush (Ns Flush) (12/22/17 17:00) Beta Hcg (Quant/Titer) (12/22/17 17:04) Us Abdomen Lower Limited (12/22/17 ) Acetaminophen (Tylenol) (12/22/17 18:15) Mri Abdomen W/O Contrast (12/22/17 ) Metoclopramide Inj (Reglan Inj) (12/22/17 20:30) Ed Poc Ultrasound (12/22/17 ) Acetaminophen (Tylenol) (12/22/17 23:00) Gc And Chlamydia Pcr (12/22/17 23:23) Wet Prep Profile (12/22/17 23:23) Ed Discharge Order (12/23/17 00:45) Labs Laboratory Tests Test 12/22/17 17:04 12/22/17 23:35 White Blood Count 9.8 TH/MM3 Red Blood Count 4.52 MIL/MM3 Hemoglobin 12.8 GM/DL Hematocrit 38.0 % Mean Corpuscular Volume 84.0 FL Mean Corpuscular Hemoglobin 28.4 PG Mean Corpuscular Hemoglobin Concent 33.8 % Red Cell Distribution Width 13.8 % Platelet Count 233 TH/MM3 Mean Platelet Volume 8.6 FL Neutrophils (%) (Auto) 74.1 % Lymphocytes (%) (Auto) 19.3 % Monocytes (%) (Auto) 5.8 % Eosinophils (%) (Auto) 0.6 % Basophils (%) (Auto) 0.2 % Neutrophils # (Auto) 7.2 TH/MM3 Lymphocytes # (Auto) 1.9 TH/MM3 Monocytes # (Auto) 0.6 TH/MM3 Eosinophils # (Auto) 0.1 TH/MM3 Basophils # (Auto) 0.0 TH/MM3 CBC Comment DIFF FINAL Differential Comment Urine Color YELLOW Urine Turbidity CLEAR Urine pH 6.5 Urine Specific [place] 1.011 Urine Protein NEG mg/dL Urine Glucose (UA) NEG mg/dL Urine Ketones 10 mg/dL Urine Occult Blood NEG Urine Nitrite NEG Urine Bilirubin NEG Urine Urobilinogen LESS THAN 2.0 MG/DL Urine Leukocyte Esterase NEG Urine RBC LESS THAN 1 /hpf Urine WBC 1 /hpf Urine Squamous Epithelial Cells 2 /hpf Urine Mucus FEW /lpf Microscopic Urinalysis Comment CULT NOT INDICATED Blood Urea Nitrogen 4 MG/DL Creatinine 0.56 MG/DL Random Glucose 79 MG/DL Total Protein 7.7 GM/DL Albumin 4.1 GM/DL Calcium Level 9.1 MG/DL Alkaline Phosphatase 86 U/L Aspartate Amino Transf (AST/SGOT) 16 U/L Alanine Aminotransferase (ALT/SGPT) 21 U/L Total Bilirubin 0.3 MG/DL Sodium Level 138 MEQ/L Potassium Level 3.5 MEQ/L Chloride Level 105 MEQ/L Carbon Dioxide Level 23.2 MEQ/L Anion Gap 10 MEQ/L Estimat Glomerular Filtration Rate 137 ML/MIN Lipase 180 U/L Human Chorionic Gonadotropin, Quant 56617 MIU/ML Clue Cells (Wet Prep) NONE SEEN Vaginal Trichomonas (Wet Prep) NONE SEEN Vaginal Yeast (Wet Prep) NONE SEEN Chlamydia trachomatis DNA (PCR) NOT DETECTED Neisseria gonorrhoeae DNA (PCR) NOT DETECTED MDM Medical Decision Making Medical Screen Exam Complete: Yes Emergency Medical Condition: Yes Medical Record Reviewed: Yes Differential Diagnosis Bleeding gastric ulcers, vomiting blood, esophageal tear. Leelee-Louie syndrome Narrative Course 22-year-old female, approximately 7 weeks presents with complaint of starting to vomit blood today. She has had no significant vomiting during the . She is complaining of right lower quadrant abdominal pain and has significant right lower quadrant abdominal pain on exam.. I discussed the patient with my attending physician, Dr. Shaver, and plan of care discussed. CBC, CMP, lipase, beta-hCG, IV, IV fluids, Zofran, abdominal ultrasound to rule out appendicitis ordered. CBC unremarkable. CMP unremarkable. Beta-hCG 70340. Urinalysis without signs of infection. 1900: Report given to Dr. Shaver. See her note for final patient disposition. Diagnosis Primary Impression: Vomiting blood Scripts Metoclopramide (Reglan) 10 Mg Tab 10 MG PO TID Y for NAUSEA, #12 TAB 0 Refills Prov: Kalpana Shaver DO 12/23/17 Acetaminophen (Tylenol) 325 Mg Tab 650 MG PO Q6H Y for PAIN SCALE 1 TO 4, #20 TAB 0 Refills Prov: Kalpana Shaver DO 12/23/17 Disposition: 01 DISCHARGE HOME Condition: Stable Dipti Stovall VEGETABLE GRADER December 22, 2017 18:19
--- NOTE | 2017-12-22 19:09 | RADRPT ---
EXAM DATE/TIME: 12/22/2017 18:23 [facility] COMPARISON: No previous studies available for comparison. INDICATIONS : Nausea, vomiting, and right lower quadrant pain x 1 day. MEDICAL HISTORY : . SURGICAL HISTORY : Tonsillectomy. [place] teeth removed. ENCOUNTER: Initial ACUITY: 1 day PAIN SCORE: 9/10 LOCATION: Right lower quadrant AREA EVALUATED: Right lower quadrant - area of appendix. FINDINGS: Imaging of the abdomen and pelvis was performed to evaluate for appendicitis. The appendix is not vis ualized. Some fluid filled loops of bowel are seen. No free fluid identified. No rebound tenderness. CONCLUSION: 1. Appendix not visualized. There are some fluid filled loops of bowel in the right lower quadrant. N o free fluid. Farrukh Chong MD on December 22, 2017 at 19:06 Board Certified Radiologist. This report was verified electronically.
[2017-12-22 19:51] VITALS: RESP 20
--- NOTE | 2017-12-22 20:28 | PD ---
Physical Exam Narrative I, Dr. Shaver, have reviewed the advance practice practitioner's documentation and am in agreement, met with the patient face to face, made the diagnosis, and the medical decision making was done by me. *My assessment and Findings: Appendicitis vs. nephrolithiasis vs. cystitis 22yo F who is 7 weeks here with right lower abdominal pain since last night. Said it is sharp, radiates to right lower back and constant. Associated with nausea and vomiting. Pt does not have an OBGYN. Had US end of November that showed IUP. Denies any vaginal bleeding or discharge. Labs reviewed , no leukocytosis. H/[place] [address]. Bedside US showed IUP with FHR 148bpm. LFTs normal. UA showed positive ketone. WBC 1. Culture not indicated. US abdomen showed that appendix is not visualized. There are some fluid filled loops of bowl in the right lower quadrant. No free fluid. On exam , pt is very tender in RLQ and suprapubic region. MRI abdomen ordered to r/o appendicitis since pt is . MRI abdomen showed no inflammatory changes in right lower quadrant. Appendix is very likely visualized and appears normal. No acute findings. I discussed with Dr. Chong and he said he is pretty sure he saw the appendix and does not see appendicitis. Pelvic was done to be complete and there was some yellow vaginal discharge but not CMT. Wet prep negative. Pt given a second dose of acetaminophen and reglan and reevaluated at bedside. Pain has improved and tolerating PO. Denies any nausea. I discussed with Dr. Bates OB hospitalist and she said there is nothing to do from OB's point of view if there is intrauterine . I discussed with patient and she wants to go home. Strict return precautions given. Data Data Last Documented VS Vital Signs Date Time Temp Pulse Resp B/P (MAP) Pulse Ox O2 Delivery O2 Flow Rate FiO2 12/22/17 19:51 20 12/22/17 15:52 98.2 102 130/71 (90) 99 Orders Orders Complete Blood Count With Diff (12/22/17 16:51) Comprehensive Metabolic Panel (12/22/17 16:51) Lipase (12/22/17 16:51) Urinalysis - C+S If Indicated (12/22/17 16:51) Iv Access Insert/Monitor (12/22/17 16:51) Ondansetron Inj (Zofran Inj) (12/22/17 17:00) Sodium Chlor 0.9% 1000 Ml Inj (Ns 1000 M (12/22/17 16:51) Sodium Chloride 0.9% Flush (Ns Flush) (12/22/17 17:00) Beta Hcg (Quant/Titer) (12/22/17 17:04) Us Abdomen Lower Limited (12/22/17 ) Acetaminophen (Tylenol) (12/22/17 18:15) Mri Abdomen W/O Contrast (12/22/17 ) Metoclopramide Inj (Reglan Inj) (12/22/17 20:30) Ed Poc Ultrasound (12/22/17 ) Acetaminophen (Tylenol) (12/22/17 23:00) Gc And Chlamydia Pcr (12/22/17 23:23) Wet Prep Profile (12/22/17 23:23) Ed Discharge Order (12/23/17 00:45) Labs Laboratory Tests Test 12/22/17 17:04 12/22/17 23:35 White Blood Count 9.8 TH/MM3 Red Blood Count 4.52 MIL/MM3 Hemoglobin 12.8 GM/DL Hematocrit 38.0 % Mean Corpuscular Volume 84.0 FL Mean Corpuscular Hemoglobin 28.4 PG Mean Corpuscular Hemoglobin Concent 33.8 % Red Cell Distribution Width 13.8 % Platelet Count 233 TH/MM3 Mean Platelet Volume 8.6 FL Neutrophils (%) (Auto) 74.1 % Lymphocytes (%) (Auto) 19.3 % Monocytes (%) (Auto) 5.8 % Eosinophils (%) (Auto) 0.6 % Basophils (%) (Auto) 0.2 % Neutrophils # (Auto) 7.2 TH/MM3 Lymphocytes # (Auto) 1.9 TH/MM3 Monocytes # (Auto) 0.6 TH/MM3 Eosinophils # (Auto) 0.1 TH/MM3 Basophils # (Auto) 0.0 TH/MM3 CBC Comment DIFF FINAL Differential Comment Urine Color YELLOW Urine Turbidity CLEAR Urine pH 6.5 Urine Specific [place] 1.011 Urine Protein NEG mg/dL Urine Glucose (UA) NEG mg/dL Urine Ketones 10 mg/dL Urine Occult Blood NEG Urine Nitrite NEG Urine Bilirubin NEG Urine Urobilinogen LESS THAN 2.0 MG/DL Urine Leukocyte Esterase NEG Urine RBC LESS THAN 1 /hpf Urine WBC 1 /hpf Urine Squamous Epithelial Cells 2 /hpf Urine Mucus FEW /lpf Microscopic Urinalysis Comment CULT NOT INDICATED Blood Urea Nitrogen 4 MG/DL Creatinine 0.56 MG/DL Random Glucose 79 MG/DL Total Protein 7.7 GM/DL Albumin 4.1 GM/DL Calcium Level 9.1 MG/DL Alkaline Phosphatase 86 U/L Aspartate Amino Transf (AST/SGOT) 16 U/L Alanine Aminotransferase (ALT/SGPT) 21 U/L Total Bilirubin 0.3 MG/DL Sodium Level 138 MEQ/L Potassium Level 3.5 MEQ/L Chloride Level 105 MEQ/L Carbon Dioxide Level 23.2 MEQ/L Anion Gap 10 MEQ/L Estimat Glomerular Filtration Rate 137 ML/MIN Lipase 180 U/L Human Chorionic Gonadotropin, Quant 13459 MIU/ML Clue Cells (Wet Prep) NONE SEEN Vaginal Trichomonas (Wet Prep) NONE SEEN Vaginal Yeast (Wet Prep) NONE SEEN Chlamydia trachomatis DNA (PCR) NOT DETECTED Neisseria gonorrhoeae DNA (PCR) NOT DETECTED MDM Supervised Visit with [facility]ER[facility]: Yes Procedures Procedure Narrative Emergency Department Pelvic ultrasound was performed with patient consent. The curvilinear probe was used in the transverse and sagittal views within the suprapubic region revealing single intrauterine . heart rate was 148bpm. Diagnosis Primary Impression: Abdominal pain Qualified Codes: R10.31 - Right lower quadrant pain Referrals: Bunny Anne MD as needed Patient Instructions: General Instructions Departure Forms: Tests/Procedures Additional Instruction: Please return to the ED if abdominal pain returns or worsens or vomiting returns or worsens. Please follow up with GI as outpatient. Please follow up with your OBGYN as outpatient. Med/Other Pt SpecificInfo: Prescription(s) given Scripts Metoclopramide (Reglan) 10 Mg Tab 10 MG PO TID Y for NAUSEA, #12 TAB 0 Refills Prov: Kalpana Shaver DO 12/23/17 Acetaminophen (Tylenol) 325 Mg Tab 650 MG PO Q6H Y for PAIN SCALE 1 TO 4, #20 TAB 0 Refills Prov: Kalpana Shaver DO 12/23/17 Disposition: 01 DISCHARGE HOME Condition: Stable Kalpana Shaver DO December 22, 2017 20:28
[2017-12-22] MEDS ORDERED: METOCLOPRAMIDE INJ 10 MG in SODIUM CHLORIDE 0.9% INJ 50 ML IV ONE (20:30)
--- NOTE | 2017-12-22 22:00 | RADRPT ---
EXAM DATE/TIME: 12/22/2017 21:07 [facility] COMPARISON: No previous studies available for comparison. INDICATIONS : Appendicitis. Vomiting with right sided abdomen pain. MEDICAL HISTORY : . 6-7 weeks gestational age. SURGICAL HISTORY : Tonsillectomy. ENCOUNTER: Initial ACUITY: 1 day PAIN SCORE: 6/10 LOCATION: Right upper quadrant TECHNIQUE: Multiplanar, multisequence magnetic resonance imaging of the abdomen was performed without contrast. FINDINGS: LIVER: Normal size with normal signal intensity. No lesion is identified. Portal vein is within normal limi ts. BILIARY: There is no intra- or extra-hepatic biliary ductal dilatation. Gallbladder contains no stones. SPLEEN: Within normal limits. PANCREAS: Within normal limits. ADRENALS: Within normal limits. KIDNEYS: Normal size and signal intensity. There is no hydronephrosis or mass. OTHER: Aorta is nonaneurysmal. There is no lymphadenopathy. CONCLUSION: 1. No inflammatory changes are seen in the right lower quadrant. The appendix is very likely visualiz ed, best seen on image 52 series 6 and appears normal. No acute findings. Farrukh Chong MD on December 22, 2017 at 21:55 Board Certified Radiologist. This report was verified electronically.
[2017-12-23] MEDS ORDERED: TYLE325T PO (00:44)
[2017-12-23] MEDS ORDERED: REGL10TA5 PO (00:48)
== END 2017-12-23 01:21 | disposition home or self-care (01) ==
LOC: NEPD 15:20
DX: O26.891 Other specified pregnancy related conditions, first trimester (principal); R10.31 Right lower quadrant pain; K92.0 Hematemesis; N89.8 Other specified noninflammatory disorders of vagina; Z3A.01 Less than 8 weeks gestation of pregnancy; Z79.899 Other long term (current) drug therapy; Z88.5 Allergy status to narcotic agent
CPT/HCPCS: 74181; 76705; 80053; 81001; 83690; 84702; 85025; 87210; 87491; 87591; 96361; 96374; 96375; 99284; J2405; J2765; J7030

== ENCOUNTER 2018-06-26 15:57 | Observation (INO) ==
[2018-06-26] MEDS ORDERED: Acetaminophen 325 MG Tablet PO PRN ×2 (16:39→22:34)
--- NOTE | 2018-06-26 16:39 | ED ---
History of Present Illness Primary Care Physician: NOT REQUIRED Chief Complaint: vaginal bleeding History of Present Illness: Mrs. Valenzuela is a 22yo at 34/2 weeks gestation presenting to the [facility] with vaginal bleeding. She states that she went to the bathroom around 1530 to urinate, when she stood up she had blood running down her leg. She also had small clots in the toilet. The bleeding has been continuous since then. No contractions at that time. She also has had decreased movement since 1000 , but that has resolved since coming into the ED. No LOF, no vaginal discharge, no dysuria, no chest pain, no shortness of breath. Some bilateral ankle swelling. She has had some mild contractions that started while in the ED. 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 [employer] No alcohol, tobacco, or illicit drug use Review of Systems Constitutional: Denies chills, Denies fever(s) Cardiovascular: Reports foot swelling, Denies chest pain Respiratory: Denies shortness of breath Gastrointestinal: Reports abdominal pain Genitourinary: Reports abnormal vaginal bleeding, Denies difficulty urinating, Denies painful urination Skin/Breast: Denies rash PMFSH - History History Provided By: Patient - Medical History Medical History: Medical History (Last Reviewed 06/26/18 @ 17:03 by Kylee Thomas MD, R2) No significant medical problems - Surgical History Surgical History: Surgical History (Last Reviewed 06/26/18 @ 17:03 by Kylee Thomas MD, R2) History of tonsillectomy - Family History Family History: Family History (Last Updated 05/04/18 @ 14:34 by Nilam Castellanos MD, R2) Other No significant family history - Tobacco History Second Hand Smoke Exposure: No Smoking Status: Never smoker - Alcohol History How Often Do You Have a Drink Containing Alcohol: Never - Substance Use History Substance History: No History of Abuse - Travel History History of Recent Travel: No Medications and Allergies Allergies Allergy/AdvReac Type Severity Reaction Status Date / Time aspirin Allergy Severe Anaphylaxis Unverified 08/14/18 19:16 codeine Allergy Severe Anaphylaxis Unverified 03/31/18 19:16 diphenhydramine Allergy Severe Anaphylaxis Unverified 03/31/18 19:16 Home Medications Medication Instructions Recorded Confirmed Type PNV cmb#[id number]-ferrous fumarate-FA 1 tab PO DAILY 02/26/18 03/31/18 History [] Exam Vital signs: Vital Signs 06/26/18 16:19 06/26/18 16:25 Temperature 98.2 F Pulse Rate 108 H 109 H Respiratory Rate 18 Blood Pressure 123/75 Narrative: GENERAL: Well-nourished, well-developed patient. SKIN: Warm and dry. HEAD: Normocephalic and atraumatic. EYES: No scleral icterus. No injection or drainage. ENT: No nasal drainage noted. Mucous membranes pink. Airway patent. NECK: Supple, trachea midline. No JVD. CARDIOVASCULAR: Regular rate and rhythm without murmurs, gallops, or rubs. RESPIRATORY: Breath sounds equal bilaterally. No accessory muscle use. ABDOMEN/GI: Abdomen soft, non-tender, bowel sounds present, no rebound, no guarding Gravid to 34 weeks size GENITOURINARY: External Genitalia: intact and normal in appearance Cervix: posterior Dilatation: 0 Effacement: 50 Station: high Presentation: vertex Membranes: intact Uterine Contractions: yes FHT's: Category: 1 Baseline: 130s Reactive: yes Variability: moderate Decels: none EXTREMITIES: No cyanosis or edema. BACK: Nontender without obvious deformity. No CVA tenderness. NEUROLOGICAL: Awake and alert. Motor and sensory grossly within normal limits. Five out of 5 muscle strength in all muscle groups. Normal speech. Results - Labs CBC & Chem 7: 06/26/18 16:42 Assessment and Plan - Diagnosis (1) Vaginal bleeding during , antepartum Code(s): O46.90 - Antepartum hemorrhage, unspecified, unspecified trimester Status: Acute Plan: 22yo at 34/2 weeks gestation presenting with vaginal bleeding Cervix: closed, thick, and high FHT: category 1, reassuring Amnisure negative Admit to Antepartum service Order CBC, type and screen, UDS LR 500ml bolus given in ED due to contractions Continue to monitor for signs of labor - Attending Attestation The exam, history, and the medical decision-making described in the above note were completed with the assistance of the resident physician. I reviewed and agree with the findings presented. I attest that I had a [id number] encounter with the patient on the same day, and personally performed and documented my assessment and findings in the medical record. Discharge Plan - Physicians Team Primary Care Provider: NOT REQUIRED, Attending Provider: Darrin Jean-Baptiste
[2018-06-26 17:09] LABS: Baso % (Auto) 0.1 % (0.0-2.0); Eos # (Auto) 0.1 th/mm3 (0.0-0.4); Eos % (Auto) 0.7 % (0.0-4.0); Hematocrit 32.1 % (35.0-46.0); Hemoglobin 10.8 gm/dL (11.6-15.3); Lymph # (Auto) 1.3 th/mm3 (1.0-4.8); Lymph % (Auto) 12.8 % (9.0-44.0); Mean Corpuscular HGB Conc 33.6 % (32.0-36.0); Mean Corpuscular Volume 86.4 fL (80.0-100.0); Mean Platelet Volume 10.3 fL (7.0-11.0); Mono # (Auto) 0.8 th/mm3 (0.0-0.9); Mono % (Auto) 7.5 % (0.0-8.0); Neut # (Auto) 7.9 th/mm3 (1.8-7.7); Neut % (Auto) 78.9 % (16.0-70.0); Platelet Count 176 th/mm3 (150-450); Red Blood Count 3.71 mil/mm3 (4.00-5.30); Red Cell Distribution Width 14.7 % (11.6-17.2)
--- NOTE | 2018-06-26 17:10 | P.HPOB ---
History of Present Illness Primary Care Physician: NOT REQUIRED Chief Complaint: vaginal bleeding History of Present Illness: Mrs. Valenzuela is a 22yo at 34/2 weeks gestation presenting to the [facility] with vaginal bleeding. She states that she went to the bathroom around 1530 to urinate, when she stood up she had blood running down her leg. She also had small clots in the toilet. The bleeding has been continuous since then. No contractions at that time. She also has had decreased movement since 1000 , but that has resolved since coming into the ED. No LOF, no vaginal discharge, no dysuria, no chest pain, no shortness of breath. Some bilateral ankle swelling. She has had some mild contractions that started while in the ED. 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 [employer] No alcohol, tobacco, or illicit drug use [facility] - History History Provided By: Patient - Medical History Medical History: Medical History (Last Reviewed 06/26/18 @ 17:03 by Kylee Thomas MD, R2) No significant medical problems - Surgical History Surgical History: Surgical History (Last Reviewed 06/26/18 @ 17:03 by Kylee Thomas MD, R2) History of tonsillectomy - Family History Family History: Family History (Last Updated 05/04/18 @ 14:34 by Nilam Castellanos MD, R2) Other No significant family history - Tobacco History Second Hand Smoke Exposure: No Smoking Status: Never smoker - Alcohol History How Often Do You Have a Drink Containing Alcohol: Never - Substance Use History Substance History: No History of Abuse - Travel History History of Recent Travel: No Medications and Allergies Allergies Allergy/AdvReac Type Severity Reaction Status Date / Time aspirin Allergy Severe Anaphylaxis Verified 06/26/18 18:14 codeine Allergy Severe Anaphylaxis Verified 06/26/18 18:14 diphenhydramine Allergy Severe Anaphylaxis Verified 06/26/18 18:14 Home Medications Medication Instructions Recorded Confirmed Type PNV cmb#95-ferrous fumarate-FA 1 tab PO DAILY 02/26/18 03/31/18 History [] Active Medications: Active Medications Acetaminophen (Tylenol) 650 mg PO Q4H PRN PRN Reason: PAIN SCALE 1 TO 5 Ferrous Sulfate (Ferosul) 325 mg PO BID [facility] Lactated Ringer's (Lr 1000 Ml Inj) 1,000 mls @ 125 mls/hr IV.CONT .Q8H LI Ondansetron HCl (Zofran Odt) 4 mg PO Q6H PRN PRN Reason: NAUSEA OR VOMITING Sodium Chloride (Ns Flush) 2 ml IV.FLUSH BID [facility] Sodium Chloride (Ns Flush) 2 ml IV.FLUSH PRN PRN PRN Reason: FLUSH AFTER USING IV ACCESS Exam Vital signs: Vital Signs 06/26/18 16:19 06/26/18 16:25 Temperature 98.2 F Pulse Rate 108 H 109 H Respiratory Rate 18 Blood Pressure 123/75 Intake & Output 06/25/18 06/26/18 06/26/18 18:59 06:59 18:59 Weight 73.457 kg Narrative: GENERAL: Well-nourished, well-developed patient. SKIN: Warm and dry. HEAD: Normocephalic and atraumatic. EYES: No scleral icterus. No injection or drainage. ENT: No nasal drainage noted. Mucous membranes pink. Airway patent. NECK: Supple, trachea midline. No JVD. CARDIOVASCULAR: Regular rate and rhythm without murmurs, gallops, or rubs. RESPIRATORY: Breath sounds equal bilaterally. No accessory muscle use. ABDOMEN/GI: Abdomen soft, non-tender, bowel sounds present, no rebound, no guarding Gravid to 34 weeks size GENITOURINARY: External Genitalia: intact and normal in appearance Cervix: posterior Dilatation: 0 Effacement: 50 Station: high Presentation: vertex Membranes: intact Uterine Contractions: yes FHT's: Category: 1 Baseline: 130s Reactive: yes Variability: moderate Decels: none EXTREMITIES: No cyanosis or edema. BACK: Nontender without obvious deformity. No CVA tenderness. NEUROLOGICAL: Awake and alert. Motor and sensory grossly within normal limits. Five out of 5 muscle strength in all muscle groups. Normal speech. Results - Labs CBC & Chem 7: 06/26/18 16:42 Labs: Laboratory Results - last 24 hr 06/26/18 06/26/18 16:42 16:42 WBC 10.0 RBC 3.71 L Hgb 10.8 L Hct 32.1 L MCV 86.4 MCH 29.0 MCHC 33.6 RDW 14.7 Plt Count 176 MPV 10.3 Neut % (Auto) 78.9 H Lymph % (Auto) 12.8 Towner % (Auto) 7.5 Eos % (Auto) 0.7 Baso % (Auto) 0.1 Neut # (Auto) 7.9 H Lymph # (Auto) 1.3 Towner # (Auto) 0.8 Eos # (Auto) 0.1 Baso # (Auto) 0.0 WBC Differential . Differential Comment Auto diff final Blood Type A Positive Caprini VTE Risk Assessment Caprini VTE Risk Assessment: Moderate/High Risk (score >= 2) Caprini Risk Assessment Model: Point Value = 1 Point Value = 2 Point Value = 3 Point Value = 5 Age 41-60 Minor surgery BMI > 25 kg/m2 Swollen legs Varicose veins or History of unexplained or recurrent spontaneous Oral contraceptives or hormone replacement Sepsis (< 1 month) Serious lung disease, including pneumonia (< 1 month) Abnormal pulmonary function Acute myocardial infarction Congestive heart failure (< 1 month) History of inflammatory bowel disease Medical patient at bed rest Age 61-74 Arthroscopic surgery Major open surgery (> 45 min) Laparoscopic surgery (> 45 min) Malignancy Confined to bed (> 72 hours) Immobilizing plaster cast Central venous access Age >= 75 History of VTE Family history of VTE Factor V Leiden Prothrombin [id number] Lupus anticoagulant Anticardiolipin antibodies Elevated serum homocysteine Heparin-induced thrombocytopenia Other congenital or acquired thrombophilia Stroke (< 1 month) Elective arthroplasty Hip, pelvis, or leg fracture Acute spinal cord injury (< 1 month) Prophylaxis Regimen: Total Risk Factor Score Risk Level Prophylaxis Regimen 0-1 Low Early ambulation 2 Moderate Order ONE of the following: *Sequential Compression Device (SCD) *Heparin 5000 units SQ BID 3-4 Higher Order ONE of the following medications: *Heparin 5000 units SQ TID *Enoxaparin/Lovenox 40 mg SQ daily (WT < 150 kg, CrCl > 30 mL/min) *Enoxaparin/Lovenox 30 mg SQ daily (WT < 150 kg, CrCl > 10-29 mL/min) *Enoxaparin/Lovenox 30 mg SQ BID (WT < 150 kg, CrCl > 30 mL/min) AND/OR *Sequential Compression Device (SCD) 5 or more Highest Order ONE of the following medications: *Heparin 5000 units SQ TID (Preferred with Epidurals) *Enoxaparin/Lovenox 40 mg SQ daily (WT < 150 kg, CrCl > 30 mL/min) *Enoxaparin/Lovenox 30 mg SQ daily (WT < 150 kg, CrCl > 10-29 mL/min) *Enoxaparin/Lovenox 30 mg SQ BID (WT < 150 kg, CrCl > 30 mL/min) AND *Sequential Compression Device (SCD) Assessment and Plan - Diagnosis (1) Vaginal bleeding during , antepartum Code(s): O46.90 - Antepartum hemorrhage, unspecified, unspecified trimester Status: Acute Plan: 22yo at 34/2 weeks gestation presenting with vaginal bleeding Cervix: closed, thick, and high FHT: category 1, reassuring Amnisure negative Admit to Antepartum service Order CBC, type and screen, UDS LR 500ml bolus given in ED due to contractions Continue to monitor for signs of labor - Attending Attestation The exam, history, and the medical decision-making described in the above note were completed with the assistance of the resident physician. I reviewed and agree with the findings presented. I attest that I had a [id number] encounter with the patient on the same day, and personally performed and documented my assessment and findings in the medical record.
[2018-06-26] MEDS ORDERED: NIFEdipine 10 MG Capsule ONE (17:39)
[2018-06-26] MEDS ORDERED: NIFEdipine 10 MG Capsule PO ONE (18:00)
[2018-06-26 18:07] LABS: Amorphous Sediment,Urine Rare /hpf; Bacteria,Urine Occasional /hpf; Bilirubin,Urine Negative (Negative); Clarity,Urine Cloudy (Clear); Color,Urine Yellow (Yellw/Straw); Glucose,Urine (UA) Negative (Negative); Hyaline Casts,Urine 8 /lpf (0-3); Leukocyte Esterase,Urine Negative (Negative); Mucus,Urine Few /lpf (Occasional); Nitrite,Urine Negative (Negative); Specific Gravity,Urine 1.011 (1.002-1.035); Squamous Epithelial Cell,Urine 1 /hpf (0-5)
--- NOTE | 2018-06-26 18:27 | P.OBGPN ---
Progress note Patient reports increased contraction intensity. Bleeding has diminished. heart rate is continued to be category 1, irregular mild contraction activity noted following initial 10 mg dose of Procardia p.o. Cervix is unchanged from admission Assessment: 34-week intrauterine with vaginal bleeding and contractions without cervical change Plan: Initiate betamethasone protocol. Continue Procardia and observation. GBS PCR
[2018-06-26] MEDS: Betamethasone Sod Phos/Acetate Inj 30 MG/5 ML Vial IM SCH (18:30)
[2018-06-26] MEDS ORDERED: fentaNYL Citrate Inj 100 MCG/2 ML Ampul IM PRN ×2 (19:48→19:49)
[2018-06-26 20:29] LABS: Amphetamine Urine With Conf Neg (Neg); Benzodiazepine Urine With Conf Neg (Neg)
[2018-06-26] MEDS: NIFEdipine 10 MG Capsule PO SCH (22:00)
[2018-06-26] MEDS: Ferrous Sulfate 325 MG Tablet PO SCH (22:25)
[2018-06-26] MEDS ORDERED: fentaNYL Citrate Inj 100 MCG/2 ML Ampul IV.PUSH PRN (23:28)
[2018-06-27] MEDS: NIFEdipine 10 MG Capsule PO SCH ×4 (01:09→07:06)
[2018-06-27 01:56] LABS: Anion Gap 9 meq/L (5-15); Blood Urea Nitrogen 3 mg/dL (7-18); Calcium 8.9 mg/dL (8.5-10.1); Carbon Dioxide 22.7 meq/L (21.0-32.0); Chloride 109 meq/L (98-107); Glomerular Filtration Rate Greater Than 89 mL/min (>89); Glucose,Random 87 mg/dL (74-106); Potassium 3.7 meq/L (3.5-5.1); Sodium 141 meq/L (136-145)
[2018-06-27 04:09] VITALS: RESP 18
[2018-06-27] MEDS: Ferrous Sulfate 325 MG Tablet PO SCH (09:21)
--- NOTE | 2018-06-27 09:28 | P.OBGPN ---
Hospital day #2 Subjective: Patient reports continued cramping which is diminishing. No bright red vaginal bleeding. Objective: Vital signs stable, heart rate category 1 The uterine irritability is minimal at this point Cervix remains unchanged, old dark granular blood noted in the vault Assessment: Third trimester vaginal bleeding, and premature onset of contractions which are diminishing Plan: Discontinue Procardia. Continue observation for further bleeding or contractions while awaiting her second betamethasone dose at 1830. If she remains stable she would likely be a candidate for discharge.
--- NOTE | 2018-06-27 13:52 | P.OBGPN ---
Patient seen complaining of pelvic pressure rates pain as an 8-9 out of 10. On examination heart rate category 1 no contractions noted on monitor no contractions palpable. Patient was seen ambulating noted to be comfortable but she states made the pressure and pain worse. No active vaginal bleeding present. Reports good movement denies leakage of fluid. On examination patient is noted to be resting comfortably family at the bedside fundus palpated no contractions cervical exam closed /50/-2 ballotable. Vulvar varicosities noted and patient was educated this may be between the compression of the vertex on the pelvic nerves as well as the vulvar varicosities the source of her discomfort. Education in regards to warm sitz baths Tylenol as needed plan to discharge after second course of betamethasone patient has family that will take her home gets off from work at 6 PM.
[2018-06-27 15:15] VITALS: BP 102/55; PULSE 102; TEMP 99
--- NOTE | 2018-06-27 17:50 | P.DS ---
Date of admission: 06/26/18 16:36 Primary care physician: NOT REQUIRED Attending physician on discharge: Jemma Hart date of discharge: 06/27/18 Brief History from admission: Mrs. Valenzuela is a 22yo at 34/2 weeks gestation presenting to the [facility] with vaginal bleeding. She states that she went to the bathroom around 1530 to urinate, when she stood up she had blood running down her leg. She also had small clots in the toilet. The bleeding has been continuous since then. No contractions at that time. She also has had decreased movement since 1000 , but that has resolved since coming into the ED. No LOF, no vaginal discharge, no dysuria, no chest pain, no shortness of breath. Some bilateral ankle swelling. She has had some mild contractions that started while in the ED. 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 [employer] No alcohol, tobacco, or illicit drug use DS: Summary Hospital Course: Uneventful - Time Spent with Patient Total time spent providing and/or coordinating discharge services: Greater than 30 minutes Exam Vital signs: Vital Signs 06/26/18 18:10 06/26/18 19:26 06/26/18 20:00 Temperature 99.2 F Pulse Rate 135 H 118 H Respiratory Rate 18 18 Blood Pressure 151/69 H 115/73 06/26/18 20:25 06/26/18 21:00 06/26/18 22:17 Temperature Pulse Rate Respiratory Rate 18 18 18 Blood Pressure 06/26/18 23:14 06/26/18 23:15 06/26/18 23:30 Temperature 98.9 F Pulse Rate 113 H Respiratory Rate 18 Blood Pressure 101/48 L 06/27/18 00:09 06/27/18 01:04 06/27/18 02:21 Temperature Pulse Rate Respiratory Rate 18 18 16 Blood Pressure 06/27/18 03:30 06/27/18 04:08 06/27/18 07:08 Temperature Pulse Rate 99 H 95 H Respiratory Rate 16 18 18 Blood Pressure 100/49 L 105/71 06/27/18 07:11 06/27/18 11:04 06/27/18 11:05 Temperature 97.9 F Pulse Rate 110 H Respiratory Rate 18 Blood Pressure 110/64 06/27/18 11:09 06/27/18 15:14 Temperature 98.3 F 99.0 F Pulse Rate 102 H Respiratory Rate 18 Blood Pressure 102/55 L Intake & Output 06/26/18 06/27/18 06/27/18 18:59 06:59 18:59 Intake Total 1999 Balance 1999 Weight 73.457 kg Intake: IV 1999 LR 1000 mL Inj 1,000 ML @ 125 1999 mls/hr IV.CONT .Q8H [facility] Rx#: [id number] - Constitutional no acute distress - Routine HEENT Exam Head: Present: normocephalic ENT: Present: mucous membranes moist - Routine Chest/Breast/Axilla Exam Chest wall: Absent: tenderness Breast: Absent: tenderness - Routine Respiratory Exam Present: CTA bilaterally - Routine Cardiovascular Exam Present: RRR - Routine Abdominal Exam Present: soft (Avid fundal height consistent with gestational age heart rate category 1 uterine contractions absent by palpation) - Routine Exam Patient deferred: perineal exam (Vulvar varicosities) External: Present: normal urethra appearance Groin: Absent: inguinal hernia Perineum Description: Intact (Exam closed 50% effaced -2 ballotable) - Routine Skin Exam Present: intact - Routine Neurological Exam Present: alert, oriented X3 Results Procedures completed during hospitalization: monitoring prolonged Labs on day of discharge: Labs from last 24 hours 06/26/18 06/26/18 06/26/18 22:15 18:30 16:42 Sodium 141 Potassium 3.7 Chloride 109 H Carbon Dioxide 22.7 Anion Gap 9 BUN 3 L Creatinine 0.47 L Estimated GFR Greater than 89 Random Glucose 87 Calcium 8.9 Urine Color Urine Clarity Urine pH Ur Specific Bonham Urine Protein Urine Glucose (UA) Urine Ketones Urine Occult Blood Urine Nitrate Urine Bilirubin Urine Urobilinogen Ur Leukocyte Esterase Urine RBC Urine WBC Ur Squamous Epith Cells Amorphous Sediment Urine Bacteria Hyaline Casts Urine Mucus Micro UA Comment Ur Microscopic Review Urine Culture Comments Urine Opiates Screen Ur Buprenorphine Pending Ur Heroin Screen Pending Urine Oxycodone Pending Ur Methadone Pending U Hydromorphone Confirm Pending Urine Fentanyl Pending Ur Barbiturates Screen Urine Gabapentin Pending Ur Phencyclidine (PCP) Pending Urine MDPV Pending Ur Amphetamine Screen Ur MDMA & Metabolites Pending U Benzodiazepines Scrn Urine Cocaine Screen U Cannabinoids Screen Ur Synth THC (K2) Pending Group B Strep (PCR) Negative 06/26/18 06/26/18 16:42 16:42 Sodium Potassium Chloride Carbon Dioxide Anion Gap BUN Creatinine Estimated GFR Random Glucose Calcium Urine Color Yellow Urine Clarity Cloudy H Urine pH 7.0 Ur Specific Bonham 1.011 Urine Protein 100 H Urine Glucose (UA) Negative Urine Ketones Negative Urine Occult Blood Large H Urine Nitrate Negative Urine Bilirubin Negative Urine Urobilinogen Less than 2 Ur Leukocyte Esterase Negative Urine RBC 34 H Urine WBC 1 Ur Squamous Epith Cells 1 Amorphous Sediment Rare H Urine Bacteria Occasional H Hyaline Casts 8 Urine Mucus Few H Micro UA Comment Culture not ind Ur Microscopic Review Not Reportable Urine Culture Comments Culture not ind Urine Opiates Screen Neg Ur Buprenorphine Ur Heroin Screen Urine Oxycodone Ur Methadone U Hydromorphone Confirm Urine Fentanyl Ur Barbiturates Screen Neg Urine Gabapentin Ur Phencyclidine (PCP) Urine MDPV Ur Amphetamine Screen Neg Ur MDMA & Metabolites U Benzodiazepines Scrn Neg Urine Cocaine Screen Neg U Cannabinoids Screen Neg Ur Synth THC (K2) Group B Strep (PCR) Preliminary micro results at discharge 06/26/18 18:30 Group B Streptococcus Screen (GREG) - Preliminary Genital - Genital Region Results Pending Discharge Plan - Discharge Disposition Patient Disposition: 01 Discharge Home - Discharge Condition Condition: Stable - Discharge Order Discharge Orders: Discharge Order (Routine); Ordered 06/27/18 Ordered By: Jemma Son - Physicians Team Primary Care Provider: NOT REQUIRED, Attending Provider: Darrin Jean-Baptiste
[2018-06-27] MEDS: Betamethasone Sod Phos/Acetate Inj 30 MG/5 ML Vial IM SCH (18:00)
== END 2018-06-27 18:15 | disposition home or self-care (01) ==
LOC: H2E 15:57 → HOBED 15:57 → H2E 16:40
PROVIDERS: ADMIT Obstetrics & Gynecology; ATTEND Obstetrics & Gynecology

== ENCOUNTER 2018-07-03 21:18 | Observation (INO) ==
[2018-07-03] MEDS ORDERED: fentaNYL Citrate Inj 100 MCG/2 ML Ampul IV.PUSH ONE (22:02)
[2018-07-03] MEDS ORDERED: Morphine Inj 4 MG/ML Vial IV.PUSH PRN (23:13)
--- NOTE | 2018-07-03 23:15 | P.HPOB ---
Patient Name: Jayne Valenzuela Date of : 89 Patient Status: Emergency Emergency Provider: Hao Samano Date: 07/03/18 22:03 Initialization Date: 07/03/18 22:03 History of Present Illness Primary Care Physician: NOT REQUIRED Dr. Miguel Stern Chief Complaint: Abdominal pain contractions History of Present Illness: Patient is a 22-year-old white female at 35 weeks [facility] and presents complaining of abdominal pain. She describes it was contractions that come and go no leaking of fluid. Patient did have vaginal bleeding last week that was fairly light she was admitted for a day and then given Procardia and observation she never changed her cervix they saw no more bleeding and she was discharged home. She returns now with pain is her only complaint she states it feels like everything is pushing down to push right out the vagina. Her NST at this time is slight tachycardia in the 160s-170 range with good variability but no true accelerations Weeks Gestation:: 35 Para: 1 : 3 Total # of Miscarriage(s): 1 Review of Systems All other systems reviewed negative except as stated in HPI PMFSH - History History Provided By: Patient - Medical History Medical History: Medical History (Last Reviewed 06/26/18 @ 17:03 by Kylee Thomas MD, R2) No significant medical problems - Surgical History Surgical History: Surgical History (Last Reviewed 06/26/18 @ 17:03 by Kylee Thomas MD, R2) History of tonsillectomy - Family History Family History: Family History (Last Updated 05/04/18 @ 14:34 by Nilam Castellanos MD, R2) Other No significant family history - Tobacco History Second Hand Smoke Exposure: No Smoking Status: Never smoker - Alcohol History How Often Do You Have a Drink Containing Alcohol: Never - Substance Use History Substance History: No History of Abuse - Travel History History of Recent Travel: No Recent Travel in the [place] Within the Last 8 Weeks: No Recent Travel Out of the Country Within the Last 8 Weeks: No Medications and Allergies Active Medications: Active Medications Lactated Ringer's (Lr 1000 Ml Inj) 1,000 mls @ 125 mls/hr IV.CONT .Q8H LI Sodium Chloride (Ns Flush) 2 ml IV.FLUSH BID LI Sodium Chloride (Ns Flush) 2 ml IV.FLUSH PRN PRN PRN Reason: FLUSH AFTER USING IV ACCESS Allergies Allergy/AdvReac Type Severity Reaction Status Date / Time aspirin Allergy Severe Anaphylaxis Verified 07/03/18 21:41 codeine Allergy Severe Anaphylaxis Verified 07/03/18 21:41 diphenhydramine Allergy Severe Anaphylaxis Verified 07/03/18 21:41 Home Medications Medication Instructions Recorded Confirmed Type PNV cmb#95-ferrous fumarate-FA 1 tab PO DAILY 02/26/18 06/26/18 History [] Exam Vital signs: Vital Signs 07/03/18 21:38 07/03/18 21:40 Pulse Rate 104 H 119 H Respiratory Rate 18 Blood Pressure 126/77 Narrative: GENERAL: Well-nourished, well-developed patient. SKIN: Warm and dry. HEAD: Normocephalic and atraumatic. EYES: No scleral icterus. No injection or drainage. ENT: No nasal drainage noted. Mucous membranes pink. Airway patent. NECK: Supple, trachea midline. No JVD. CARDIOVASCULAR: Regular rate and rhythm without murmurs, gallops, or rubs. RESPIRATORY: Breath sounds equal bilaterally. No accessory muscle use. BREASTS: Bilateral exam showed no masses , no retractions, no nipple discharge. ABDOMEN/GI: Abdomen soft, 1+ tender, bowel sounds present, no rebound, no guarding Gravid to [35-] weeks size Fundal Height: [35-] GENITOURINARY: External Genitalia: intact and normal in appearance BUS glands: [-] Cervix: [post-] Dilatation: [Closed-] Effacement: [Thick-] Station: [-3] Presentation: [vtx-] Membranes: [intact ] Uterine Contractions: [none seen-] FHT's: Category: [ 2] Baseline: [ 165-170] Reactive: [-R] Variability: [-mod] Decels: [0-] EXTREMITIES: No cyanosis or edema. BACK: Nontender without obvious deformity. No CVA tenderness. NEUROLOGICAL: Awake and alert. Motor and sensory grossly within normal limits. Five out of 5 muscle strength in all muscle groups. Normal speech. Results - Labs Labs: Urine dip on OB ED is negative Assessment and Plan - Diagnosis (1) Abdominal pain affecting Code(s): O26.899 - Other specified related conditions, unspecified trimester; R10.9 - Unspecified abdominal pain Status: Acute (2) Antepartum tachycardia affecting care of mother Code(s): O36.8390 - Maternal care for abnormalities of the heart rate or rhythm, unspecified trimester, not applicable or unspecified Status: Acute - Plan This is a multiparous patient is a 35 weeks and having abdominal pain that were not registering contractions on the monitor. Cervix is unchanged from previous exam is essentially closed thick and high. heart tones show tachycardia in the 160-170 range likely resulting from mothers tachycardia of 115 --117 Plan to IV hydrate with a liter of fluid, 50 mcg of fentanyl IV for pain If the maternal and heart rates normalize history of is reactive the patient be able to be discharged home if tachycardia persists and may need to observe overnight. Discharge Plan - Physicians Team ED Provider: Hao Samano Primary Care Provider: NOT REQUIRED, - Rxs /Orders / Referrals /Forms Prescriptions: No Action ferrous sulfate [FeroSul] 325 mg (65 mg iron) Tablet 325 mg PO BID RF: 0 PNV cmb#95-ferrous fumarate-FA [] 28 mg iron- 800 mcg Tablet 1 tab PO DAILY - Discharge Instructions Print Language: Estonian
[2018-07-04 00:18] LABS: Baso % (Auto) 0.1 % (0.0-2.0); Eos # (Auto) 0.1 th/mm3 (0.0-0.4); Eos % (Auto) 0.9 % (0.0-4.0); Hematocrit 29.6 % (35.0-46.0); Hemoglobin 9.7 gm/dL (11.6-15.3); Lymph # (Auto) 2.1 th/mm3 (1.0-4.8); Lymph % (Auto) 17.3 % (9.0-44.0); Mean Corpuscular HGB Conc 32.7 % (32.0-36.0); Mean Corpuscular Hemoglobin 27.6 pg (27.0-34.0); Mean Corpuscular Volume 84.4 fL (80.0-100.0); Mean Platelet Volume 10.3 fL (7.0-11.0); Mono # (Auto) 0.8 th/mm3 (0.0-0.9); Mono % (Auto) 6.3 % (0.0-8.0); Neut # (Auto) 9.1 th/mm3 (1.8-7.7); Neut % (Auto) 75.4 % (16.0-70.0); Platelet Count 157 th/mm3 (150-450); Red Blood Count 3.51 mil/mm3 (4.00-5.30); Red Cell Distribution Width 14.4 % (11.6-17.2)
[2018-07-04 00:21] LABS: Bacteria,Urine Rare /hpf; Bilirubin,Urine Negative (Negative); Clarity,Urine Clear (Clear); Color,Urine Straw (Yellw/Straw); Glucose,Urine (UA) Negative (Negative); Leukocyte Esterase,Urine Negative (Negative); Mucus,Urine Few /lpf (Occasional); Nitrite,Urine Negative (Negative); Specific Gravity,Urine 1.006 (1.002-1.035); Transitional Epi Cells,Urine <1 /hpf
[2018-07-04 00:26] LABS: Amphetamine Urine With Conf Neg (Neg); Benzodiazepine Urine With Conf Neg (Neg)
[2018-07-04 00:40] LABS: Anion Gap 10 meq/L (5-15); Blood Urea Nitrogen 6 mg/dL (7-18); Calcium 8.2 mg/dL (8.5-10.1); Carbon Dioxide 22.4 meq/L (21.0-32.0); Chloride 107 meq/L (98-107); Glomerular Filtration Rate Greater Than 89 mL/min (>89); Glucose,Random 92 mg/dL (74-106); Potassium 3.6 meq/L (3.5-5.1); Sodium 139 meq/L (136-145)
[2018-07-04 07:25] VITALS: BP 96/68; PULSE 96; RESP 16
--- NOTE | 2018-07-04 07:30 | P.OBANTE ---
Subjective Interval History: After 12 hours of bed rest with fluid and pain medication the pains patient's pains improved some, she still having some contractions and is very frustrated with her pain situation but she was informed is nothing else we can really do at this point Antepartum ROS: Reports: movement normal Objective Vital Signs and I&O: Vital Signs 07/03/18 21:38 07/03/18 21:40 07/03/18 21:45 Temperature 98.2 F Pulse Rate 104 H 119 H Respiratory Rate 18 Blood Pressure 126/77 07/03/18 23:27 07/04/18 00:24 07/04/18 05:58 Temperature 98.2 F Pulse Rate 87 82 Respiratory Rate 18 18 Blood Pressure 107/69 103/62 07/04/18 06:55 07/04/18 07:24 Temperature Pulse Rate 88 96 H Respiratory Rate 16 Blood Pressure 96/68 L Intake & Output 07/03/18 07/04/18 07/04/18 18:59 06:59 18:59 Intake Total 1000 / 1000 Balance 1000 / 1000 Weight 73 kg Intake: IV 1000 / 1000 LR 1000 mL Inj 1,000 ML @ 125 1000 / 1000 mls/hr IV.CONT .Q8H [facility] Rx#: [id number] Lab and Micro Results: Laboratory Results - last 24 hr 07/03/18 07/03/18 07/03/18 22:00 22:00 23:55 WBC 12.0 H RBC 3.51 L Hgb 9.7 L Hct 29.6 L MCV 84.4 MCH 27.6 MCHC 32.7 RDW 14.4 Plt Count 157 MPV 10.3 Neut % (Auto) 75.4 H Lymph % (Auto) 17.3 Thayer % (Auto) 6.3 Eos % (Auto) 0.9 Baso % (Auto) 0.1 Neut # (Auto) 9.1 H Lymph # (Auto) 2.1 [place]ayer # (Auto) 0.8 Eos # (Auto) 0.1 Baso # (Auto) 0.0 WBC Differential . Differential Comment Auto diff final Sodium Potassium Chloride Carbon Dioxide Anion Gap BUN Creatinine Estimated GFR Random Glucose Calcium Urine Color Straw Urine Clarity Clear Urine pH 6.0 Ur Specific [place] 1.006 Urine Protein Negative Urine Glucose (UA) Negative Urine Ketones Negative Urine Occult Blood Negative Urine Nitrate Negative Urine Bilirubin Negative Urine Urobilinogen Less than 2 Ur Leukocyte Esterase Negative Urine WBC Less than 1 Ur Transition Epith Cell <1 Urine Bacteria Rare H Urine Mucus Few H Micro UA Comment Culture not ind Ur Microscopic Review Not Reportable Urine Culture Comments Culture not ind Urine Opiates Screen Neg Ur Barbiturates Screen Neg Ur Amphetamine Screen Neg U Benzodiazepines Scrn Neg Urine Cocaine Screen Neg U Cannabinoids Screen Neg 07/03/18 23:55 WBC RBC Hgb Hct MCV MCH MCHC RDW Plt Count MPV Neut % (Auto) Lymph % (Auto) [place] % (Auto) Eos % (Auto) Baso % (Auto) Neut # (Auto) Lymph # (Auto) [place]ayer # (Auto) Eos # (Auto) Baso # (Auto) WBC Differential Differential Comment Sodium 139 Potassium 3.6 Chloride 107 Carbon Dioxide 22.4 Anion Gap 10 BUN 6 L Creatinine 0.45 L Estimated GFR Greater than 89 Random Glucose 92 Calcium 8.2 L Urine Color Urine Clarity Urine pH Ur Specific [place] Urine Protein Urine Glucose (UA) Urine Ketones Urine Occult Blood Urine Nitrate Urine Bilirubin Urine Urobilinogen Ur Leukocyte Esterase Urine WBC Ur Transition Epith Cell Urine Bacteria Urine Mucus Micro UA Comment Ur Microscopic Review Urine Culture Comments Urine Opiates Screen Ur Barbiturates Screen Ur Amphetamine Screen U Benzodiazepines Scrn Urine Cocaine Screen U Cannabinoids Screen Physical Exam: GENERAL: Well-nourished, well-developed patient. CARDIOVASCULAR: Regular rate and rhythm without murmurs, gallops, or rubs. RESPIRATORY: Breath sounds equal bilaterally. No accessory muscle use. ABDOMEN/GI: Abdomen soft, non-tender. Fundus: [-] GENITOURINARY: External Genitalia: intact and normal in appearance Cervix: [No change-] Uterine Contractions: [Irregular-] FHT's: Category: [1-] Baseline: [-133] Reactive: [-R] Variability: [mod-] Decels: [0-]+accels EXTREMITIES: No cyanosis or edema, non-tender, without signs of DVT. Assessment and Plan - Diagnosis (1) Abdominal pain affecting Code(s): O26.899 - Other specified related conditions, unspecified trimester; R10.9 - Unspecified abdominal pain Status: Acute (2) Antepartum tachycardia affecting care of mother Code(s): O36.8390 - Maternal care for abnormalities of the heart rate or rhythm, unspecified trimester, not applicable or unspecified Status: Acute - Plan Discharge home to bedrest, Tylenol, p.o. fluids, follow-up with her OB provider
[2018-07-04 07:31] VITALS: TEMP 98.4
== END 2018-07-04 08:02 | disposition home or self-care (01) ==
LOC: H2E 21:18 → HOBED 21:18
PROVIDERS: ADMIT Obstetrics & Gynecology Maternal & Fetal Medicine; ATTEND Obstetrics & Gynecology Maternal & Fetal Medicine
DX: O76 Abnormality in fetal heart rate and rhythm complicating labor and delivery; O26.893 Other specified pregnancy related conditions, third trimester; R10.9 Unspecified abdominal pain; Z3A.35 35 weeks gestation of pregnancy

== ENCOUNTER 2018-08-01 16:15 | Inpatient (IN) ==
--- NOTE | 2018-08-01 17:38 | ED ---
History of Present Illness Primary Care Physician: NOT REQUIRED Chief Complaint: ctx History of Present Illness: Pt is a pleasant 22y/o @ 39.3wks. She has PNC with [facility]. She reports ctx which started at 02:30 this morning and have become increasingly more painful. She denies LOF or VB. Decr FM today. She denies any complication with this or prior preg/delivery. OBHx: 1. ectopic s/p MTX 2. @ 39wks (6lbs 6oz) 3. current Weeks Gestation:: 39 Para: 1 : 3 - Inpatient Certification I certify that the inpatient services were ordered in accordance with Medicare regulations governing the order. This includes certification that hospital inpatient services are reasonable and necessary and in the case of services not specified as inpatient-only under 42 CFR 419.22(n), that they are appropriately provided as inpatient services in accordance to with the 2-midnight benchmark under 43 CFR 412.3(e) Review of Systems All other systems reviewed negative except as stated in HPI PMFSH - History History Provided By: Patient - Medical History Medical History: Medical History (Last Reviewed 06/26/18 @ 17:03 by Kylee Thomas MD, R2) No significant medical problems - Surgical History Surgical History: Surgical History (Last Reviewed 06/26/18 @ 17:03 by Kylee Thomas MD, R2) History of tonsillectomy - Family History Family History: Family History (Last Updated 05/04/18 @ 14:34 by Nilam Castellanos MD, R2) Other No significant family history - Tobacco History Second Hand Smoke Exposure: No Smoking Status: Never smoker - Alcohol History How Often Do You Have a Drink Containing Alcohol: Never - Substance Use History Substance History: No History of Abuse - Travel History History of Recent Travel: No Recent Travel in the [place] Within the Last 8 Weeks: No Recent Travel Out of the Country Within the Last 8 Weeks: No Medications and Allergies Allergies Allergy/AdvReac Type Severity Reaction Status Date / Time aspirin Allergy Severe Anaphylaxis Verified 08/01/18 16:38 codeine Allergy Severe Anaphylaxis Verified 08/01/18 16:38 diphenhydramine Allergy Severe Anaphylaxis Verified 08/01/18 16:38 Home Medications Medication Instructions Recorded Confirmed Type PNV cmb#95-ferrous fumarate-FA 1 tab PO DAILY 02/26/18 08/01/18 History [] Exam Vital signs: Vital Signs 08/01/18 16:28 08/01/18 16:54 Temperature 98.1 F Pulse Rate 112 H 102 H Respiratory Rate 20 Blood Pressure 141/80 H 123/62 Intake & Output 07/31/18 08/01/18 08/01/18 18:59 06:59 18:59 Weight 77.111 kg Narrative: General: well developed, well nourished, no acute distress HEENT: normocephalic atraumatic, extraocular movements intact, neck supple Abdomen: soft, gravid, nontender, nondistended Uterus: fundus term Extremities: full range of motion Skin: normal coloration, no rashes, no suspicious skin lesions noted Neurologic: cranial nerves 2-12 grossly intact, normal muscle tone, normal gait Psychiatric: normal mood and affect, appropriate FHTs: cat 2, intially late appearing decelerations with moderate variability, now no decels but [place]: irregular ctx Cvx: -3 ----> /-2 Assessment and Plan - Diagnosis (1) 39 weeks gestation of Code(s): Z3A.39 - 39 weeks gestation of Status: Acute (2) Uterine contractions Status: Acute (3) Non-reactive NST (non-stress test) Code(s): O28.8 - Other abnormal findings on screening of mother Status: Acute - Plan 22y/o @ 39.3wks with early labor and NRNST. -- FHTs cat 2 -- admit to L&D -- CLD, CEFM/toco, epidural/chamberlain PRN -- pitocin or AROM PRN -- GBS neg Discharge Plan - Discharge Disposition Patient Disposition: ED Admit(ED Internal Use Only) - Physicians Team ED Provider: Gabrielle Anna V Primary Care Provider: NOT REQUIRED,
[2018-08-01] MEDS ORDERED: Oxytocin 30 Units/500ml Premix 30 UNITS/500 ML BAG IV.SIG ONE (17:40)
[2018-08-01] MEDS ORDERED: Sodium Chlor 0.9% Inj 500 ML IV.SIG PRN (17:40)
[2018-08-01] MEDS ORDERED: Sod Chloride 0.9% Inj 1,000 ML IV.CONT PRN (17:40)
[2018-08-01] MEDS ORDERED: fentaNYL Citrate Inj 100 MCG/2 ML Ampul IV.PUSH PRN ×2 (17:40)
[2018-08-01] MEDS ORDERED: Naloxone Inj 0.4 MG/ML Vial IV.PUSH PRN (17:40)
[2018-08-01] MEDS ORDERED: Citric Acid/Sodium Citrate Liq 30 ML UDC PO SCH (17:45)
[2018-08-01 18:13] LABS: Baso % (Auto) 0.2 % (0.0-2.0); Eos # (Auto) 0.1 th/mm3 (0.0-0.4); Eos % (Auto) 0.4 % (0.0-4.0); Hematocrit 31.3 % (35.0-46.0); Hemoglobin 10.5 gm/dL (11.6-15.3); Lymph # (Auto) 1.9 th/mm3 (1.0-4.8); Lymph % (Auto) 10.8 % (9.0-44.0); Mean Corpuscular HGB Conc 33.6 % (32.0-36.0); Mean Corpuscular Hemoglobin 28.1 pg (27.0-34.0); Mean Corpuscular Volume 83.4 fL (80.0-100.0); Mean Platelet Volume 9.9 fL (7.0-11.0); Mono # (Auto) 1.1 th/mm3 (0.0-0.9); Mono % (Auto) 6.1 % (0.0-8.0); Neut # (Auto) 14.4 th/mm3 (1.8-7.7); Neut % (Auto) 82.5 % (16.0-70.0); Platelet Count 204 th/mm3 (150-450); Red Blood Count 3.75 mil/mm3 (4.00-5.30); White Blood Count 17.4 th/mm3 (4.0-11.0)
[2018-08-01 18:34] LABS: Bacteria,Urine Occasional /hpf; Bilirubin,Urine Negative (Negative); Clarity,Urine Hazy (Clear); Color,Urine Yellow (Yellw/Straw); Glucose,Urine (UA) Negative (Negative); Leukocyte Esterase,Urine Negative (Negative); Mucus,Urine Few /lpf (Occasional); Nitrite,Urine Negative (Negative); Specific Gravity,Urine 1.009 (1.002-1.035); Squamous Epithelial Cell,Urine 4 /hpf (0-5)
[2018-08-01 18:36] LABS: Amphetamine Urine With Conf Neg (Neg); Benzodiazepine Urine With Conf Neg (Neg); Cocaine Urine With Conf Neg (Neg); Opiates Urine With Conf Neg (Neg)
[2018-08-01 18:58] LABS: Cannabinoid Urine With Conf Neg (Neg)
[2018-08-01] MEDS ORDERED: fentaNYL 2MCG-Bupiv 0.125% Epi 150 ML EPIDURAL ONE (22:55)
[2018-08-01] MEDS: fentaNYL Citrate Inj 100 MCG/2 ML Ampul EPIDURAL ONE (23:00)
[2018-08-02] MEDS ORDERED: fentaNYL 2MCG-Bupiv 0.125% Epi 150 ML EPIDURAL PRN ×2 (00:11→00:12)
[2018-08-02] MEDS ORDERED: fentaNYL Citrate Inj 100 MCG/2 ML Ampul EPIDURAL ONE (00:12)
--- NOTE | 2018-08-02 04:39 | P.OBLABOR ---
Subjective Interval history: Pt is c/c/+1-2. Thick meconium. She has been pushing for 1.25hrs. She has an epidural. Objective Vital Signs: Vital Signs - 8 hr 08/01/18 20:41 08/01/18 21:13 08/01/18 21:41 Temperature Pulse Rate 91 H 193 H Respiratory Rate 18 18 18 Blood Pressure 116/71 127/114 H 08/01/18 22:45 08/01/18 23:12 08/01/18 23:23 Temperature Pulse Rate 88 104 H 106 H Respiratory Rate 18 20 Blood Pressure 117/65 123/77 122/85 08/01/18 23:25 08/01/18 23:35 08/01/18 23:40 Temperature Pulse Rate 97 H 96 H 87 Respiratory Rate Blood Pressure 119/73 120/63 108/65 08/01/18 23:55 08/02/18 00:30 08/02/18 00:40 Temperature Pulse Rate 95 H 97 H 89 Respiratory Rate Blood Pressure 125/75 114/74 08/02/18 00:45 08/02/18 00:55 08/02/18 01:13 Temperature Pulse Rate 105 H 86 84 Respiratory Rate 18 Blood Pressure 120/80 08/02/18 01:25 08/02/18 01:30 08/02/18 01:45 Temperature Pulse Rate 80 87 85 Respiratory Rate 18 Blood Pressure 113/73 08/02/18 01:55 08/02/18 02:11 08/02/18 02:25 Temperature 98.0 F Pulse Rate 89 88 94 H Respiratory Rate 18 Blood Pressure 112/68 08/02/18 03:00 08/02/18 03:05 08/02/18 03:35 Temperature Pulse Rate 98 H 95 H 122 H Respiratory Rate Blood Pressure 91/78 L 113/66 08/02/18 04:00 Temperature Pulse Rate 133 H Respiratory Rate Blood Pressure 123/68 Objective: FHTs demonstrate baseline of 150s, moderate variability, variables with pushing and maternal repositioning. [place] is difficult to trace contractions 2' to maternal movements. Thick meconium. There is a minimal amount of caput. Fetus is LOP. Attempts to rotate manually unsuccessful. Prominent ischial spines but adequate pelvis with normal arch and extra room posteriorly. Assessment and Plan - Diagnosis (1) 39 weeks gestation of Code(s): Z3A.39 - 39 weeks gestation of Status: Acute (2) Uterine contractions Status: Acute (3) Non-reactive NST (non-stress test) Code(s): O28.8 - Other abnormal findings on screening of mother Status: Acute - Plan Reposition to maternal R or knee-chest to facilitate rotation and effective pushing as FHTs allow.
[2018-08-02] MEDS ORDERED: Zolpidem Tartrate 5 MG Tablet PO PRN (05:03)
[2018-08-02] MEDS ORDERED: Benzocaine 20% Top Spray 60 ML Can TOPICAL PRN (05:03)
[2018-08-02] MEDS ORDERED: Naloxone Inj 0.4 MG/ML Vial IV.PUSH PRN (05:03)
[2018-08-02] MEDS ORDERED: Witch Hazel 50%/Glyderin 12.5% 40 Pad Jar RECTAL PRN (05:03)
[2018-08-02] MEDS ORDERED: Bisacodyl 10 MG Supp RECTAL PRN (05:03)
[2018-08-02] MEDS ORDERED: Oxytocin 30 Units/500ml Premix 30 UNITS/500 ML BAG IV.CONT PRN (05:03)
--- NOTE | 2018-08-02 05:06 | P.OBDELI ---
Weeks Gestation: 39 Patient Started Active Labor: Yes Medical Induction of Labor: No Artificial Rupture of Membrane: No Anesthesia: Epidural Episiotomy: none Vaginal Delivery: Normal Presentation: Occiput posterior Nuchal Cord: None Delayed Cord Clamping (45 sec): Yes Placenta: Spontaneous delivery, Intact, Uterus explored +, 3 vessel cord Laceration: None Estimated blood loss (mL): 100 Infant: Female Delivery Time: 04:55 score (1 min): 8 score (5 min): 9
[2018-08-02] MEDS: Acetaminophen 325 MG Tablet PO PRN ×3 (05:36→22:07)
[2018-08-02] MEDS: fentaNYL Citrate Inj 100 MCG/2 ML Ampul EPIDURAL ONE (07:15)
[2018-08-02] MEDS: Senna/Docusate Sodium 8.6/50 MG Tablet PO SCH ×2 (14:02→22:07)
[2018-08-02] MEDS: Prenatal Vit/Ca/Iron/Folic Acid Tablet PO SCH (14:05)
[2018-08-02] MEDS ORDERED: Diphtheria/Tetanus/Pertussis Vaccine Inj 0.5 ML Syringe IM ONE (16:00)
[2018-08-02] MEDS ORDERED: Measles/Mumps/Rubella Vaccine Inj 0.5 ML Vial SQ ONE (16:00)
[2018-08-02] MEDS ORDERED: Influenza (Quadrivalent) Vaccine 0.5 ML Syringe IM ONE (16:45)
[2018-08-03] MEDS: Acetaminophen 325 MG Tablet PO PRN (06:08)
--- NOTE | 2018-08-03 08:17 | P.PNOB ---
Subjective Post day: 1 Interval history: Patient is a 22-year-old G 3 P 2 delivered at 30 weeks and 3 days. Patient is day 1 after . Patient's pain is well-controlled. Patient reports eating and drinking without any nausea or vomiting. Patient reports minimal bleeding. Patient has passed gas but no bowel movements. Patient is walking without lower extremity pain or shortness of breath. Patient reports desire for contraception but is still undecided on which method and breast-feeding. Objective Vital Signs/I&O: Vital Signs 08/02/18 08:25 08/02/18 19:55 08/03/18 08:00 Temperature 98.0 F 98.3 F 98.2 F Pulse Rate 74 94 H 69 Respiratory Rate 18 18 16 Blood Pressure 101/74 128/71 101/56 L Result Diagrams: 08/01/18 17:38 Objective Remarks: GENERAL: Well-nourished, well-developed patient. CARDIOVASCULAR: Regular rate and rhythm without murmurs, gallops, or rubs. RESPIRATORY: Breath sounds equal bilaterally. No accessory muscle use. ABDOMEN/GI: Abdomen soft, non-tender. Fundus: Firm, non-tender at umbilicus. GENITOURINARY: Light to moderate bleeding. EXTREMITIES: No cyanosis or edema, non-tender, without signs of DVT. Medications and IVs: Active Medications Acetaminophen (Tylenol) 650 mg PO Q4H PRN PRN Reason: PAIN SCALE 1 TO 2 Last Admin: 08/03/18 06:08 Dose: 650 mg Al Hydroxide/Mg Hydroxide (Milk Of Magnesia Liq) 30 ml PO Q12H PRN PRN Reason: Mild Constipation Benzocaine (Americaine 20% [place]) 1 spray TOPICAL Q4H PRN PRN Reason: For Perineum Discomfort Bisacodyl (Dulcolax Supp) 10 mg RECTAL DAILY PRN PRN Reason: SEVERE CONSITIPATION Citric Acid/Sodium Citrate (Sodium Citrate/Citric Acid Liq) 30 ml PO [employer] [facility] Stop: 08/05/18 17:44 Fentanyl Citrate (Fentanyl Inj) 50 mcg IV.PUSH Q1H PRN PRN Reason: Pain Scale 3 - 5 Fentanyl Citrate (Fentanyl Inj) 100 mcg IV.PUSH Q1H PRN PRN Reason: PAIN SCALE 6 TO 10 Lactated Ringer's (Lr 1000 Ml Inj) 1,000 mls @ 3,000 mls/hr IV.SIG UNSCH PRN PRN Reason: compromise or epidural Sodium Chloride (Ns Inj) 500 mls @ 1,000 mls/hr IV.SIG UNSCH PRN PRN Reason: SEE LABEL COMMENTS Sodium Chloride (Ns Inj) 1,000 mls @ 100 mls/hr IV.CONT .Q10H PRN PRN Reason: SEE LABEL COMMENTS Lactated Ringer's (Lr 1000 Ml Inj) 1,000 mls @ 125 mls/hr IV.CONT .Q8H LI Last Admin: 08/03/18 04:40 Dose: Not Given Fentanyl/Bupivacaine/Sodium Chlor (Fentanyl 2 Mcg-Bupiv 0.125% Epi) 150 mls @ 12 mls/hr EPIDURAL PRN PRN PRN Reason: for Labor Pain Last Admin: 08/01/18 23:20 Dose: 12 mls/hr Oxytocin (Pitocin 30 Units/Ns 500 Ml Premix) 30 units in 500 mls @ 100 mls/hr IV.CONT UNSCH PRN PRN Reason: Heavy bleeding Ibuprofen (Motrin) 800 mg PO Q8H PRN PRN Reason: For Cramping Last Admin: 08/03/18 06:07 Dose: 800 mg Lactulose (Lactulose Liq) 30 ml PO DAILY PRN PRN Reason: SEVERE CONSITIPATION Lidocaine HCl (Xylocaine 1% Inj) 0.1 ml I-DERMAL PRN PRN PRN Reason: For IV start Stop: 08/04/18 17:39 Lidocaine HCl (Xylocaine 1% Inj) 10 ml INFILTRATN PRN PRN PRN Reason: For episiotomy repair Stop: 08/03/18 17:39 Mineral Oil (Muri-Lube Oil) 10 ml TOPICAL PRN PRN PRN Reason: PRN perineal massage Last Admin: 08/02/18 06:01 Dose: 10 ml Naloxone HCl (Narcan Inj) 0.1 mg IV.PUSH Q2M PRN PRN Reason: for opiate reversal Naloxone HCl (Narcan Inj) 0.1 mg IV.PUSH Q2M PRN PRN Reason: for opiate reversal Ondansetron HCl (Zofran Inj) 4 mg IV.PUSH Q6H PRN PRN Reason: NAUSEA OR VOMITING Ondansetron HCl (Zofran Odt) 4 mg PO Q6H PRN PRN Reason: NAUSEA OR VOMITING Vit/Calcium/Iron/Folic Ac (Stuartnatal Plus 3) 1 tab PO DAILY [facility] Last Admin: 08/02/18 14:05 Dose: Not Given Senna/Docusate Sodium (Mahsa-Colace) 1 tab PO BID [facility] Last Admin: 08/02/18 22:07 Dose: 1 tab Sennosides (Senokot) 17.2 mg PO Q12H PRN PRN Reason: Moderate Constipation Sodium Chloride (Ns Flush) 2 ml IV.FLUSH BID [facility] Last Admin: 08/03/18 00:19 Dose: Not Given Sodium Chloride (Ns Flush) 2 ml IV.FLUSH PRN PRN PRN Reason: FLUSH AFTER USING IV ACCESS Sodium Chloride (Ns Flush) 2 ml IV.FLUSH BID [facility] Last Admin: 08/03/18 00:19 Dose: Not Given Sodium Chloride (Ns Flush) 2 ml IV.FLUSH PRN PRN PRN Reason: FLUSH AFTER USING IV ACCESS Witch Rebecca/Glycerin (Tucks Pads) 1 applicatio RECTAL QID PRN PRN Reason: HEMORRHOIDS Zolpidem Tartrate (Ambien) 5 mg PO HS PRN PRN Reason: SLEEP Assessment and Plan - Diagnosis (1) Normal course Code(s): Z39.2 - Encounter for routine follow-up Status: Acute - Plan Patient is a 22-year-old G 3 P 2 delivered at 39 weeks and 3 days. Patient is day 1 after . Patient was counseled to do 6 weeks of pelvic rest. Patient was counseled to follow up in 6 weeks. Patient requested follow-up and contraception. --AF VSS --Continue routine care --Motrin and Tylenol when necessary for pain --Encourage OOB --Pelvic rest for 6 weeks will need follow-up appointment at that time. --Contraception: Undecided --Anticipate discharge today as long as railway head tender has discharged baby.
[2018-08-03] MEDS: Prenatal Vit/Ca/Iron/Folic Acid Tablet PO SCH (09:52)
[2018-08-03] MEDS: Senna/Docusate Sodium 8.6/50 MG Tablet PO SCH (09:52)
== END 2018-08-03 16:48 | disposition home or self-care (01) ==
LOC: HOBED 16:15 → H2E 17:27 → H1EA 08-02 07:46
PROVIDERS: ADMIT Obstetrics & Gynecology; ATTEND Obstetrics & Gynecology